=== PATIENT | male | born 1930 | race Caucasian/White ===

== ENCOUNTER 2017-08-27 21:23 | Observation (INO) | payer OTHER ==
[~2017-08-27] VITALS: Ht 177.8 cm; Wt 71.0 kg
[~2017-08-27 21:23] MED LIST: ANACIN PO; INSDGI SC; LEVE1TAB57 PO; LOVA10TA3 PO; METO25TA56 PO; MULT-190 PO; NTRGSL/4 UT; NVLGI SC; PRLSR20 PO; VITRON-C PO
[2017-08-27] MEDS ORDERED: SODIUM CHLORIDE 0.9% 250ML 250 ML IV STA (21:39)
[2017-08-27 22:19] LABS: BASO % 0.6 %; BASO ABS # 0.04 K/uL (0-0.2); EOS % 5.4 %; EOS ABS # 0.35 K/uL (0-0.5); HEMATOCRIT 40.1 % (42-52); HEMOGLOBIN 14.1 g/dL (14.0-18.0); IG# 0.02 K/uL (0.00-0.02); LYMPH % 25.1 %; LYMPH ABS # 1.63 K/uL (1.2-3.4); MEAN CORPUSCULAR HEMOGLOBIN 35.2 pg (25-34); MEAN CORPUSCULAR HGB CONC 35.2 g/dl (32-36); MEAN PLATELET VOLUME 10.6 fL (7.4-10.4); MONO % 14.5 %; MONO ABS # 0.94 K/uL (0.11-0.59); NEUT % 54.1 %; NEUT ABS # 3.52 K/uL (1.4-6.5); PLATELET COUNT 161 K/uL (130-400); RED CELL DISTRIBUTION WIDTH CV 13.5 % (11.5-14.5); RED CELL DISTRIBUTION WIDTH SD 49.3 fL (36.4-46.3)
[2017-08-27 22:42] LABS: ALBUMIN 3.1 gm/dl (3.4-5.0); CALCIUM 8.3 mg/dl (8.5-10.1); CREATININE 1.97 mg/dl (0.60-1.40); POTASSIUM 4.3 mmol/L (3.5-5.1)
[2017-08-27 23:05] LABS: TOTAL PROTEIN 6.9 gm/dl (6.4-8.2)
[2017-08-28] VITALS (7 sets, daily range): BP systolic 136–158; BP diastolic 56–80; PULSE 61–89; TEMP 36.4–36.8; O2SAT 95–98; Ht 177.8 cm; Wt 71.0 kg
[2017-08-28] MEDS ORDERED: FERRTAB18 PO (00:29)
[2017-08-28] MEDS ORDERED: ASPI-435 PO (00:29)
[2017-08-28] MEDS ORDERED: CALC0.2510 PO (00:32)
[2017-08-28] MEDS ORDERED: DIVA250T PO (00:32)
[2017-08-28] MEDS ORDERED: PREN1MIS PO (00:34)
[2017-08-28] MEDS ORDERED: NVLG SQ ×2 (00:36)
[2017-08-28] MEDS ORDERED: L-ME1CAP3 PO (00:37)
[2017-08-28] MEDS ORDERED: INSDGI SC (00:38)
[2017-08-28] MEDS ORDERED: LEVE500T13 PO (00:38)
[2017-08-28] MEDS ORDERED: METOPROLOL TARTRATE 50 MG TAB PO STA (00:38)
[2017-08-28] MEDS ORDERED: FURO-85 PO (00:38)
--- NOTE | 2017-08-28 00:40 | EMERGENCY ROOM VISIT NOTE ---
ED Visit Note First contact with patient: 22:28 The patient was seen and examined with Kun. I agree with the history, physical and findings. Please see the note for disposition and details.
--- NOTE | 2017-08-28 00:46 | EMERGENCY ROOM VISIT NOTE ---
History First contact with patient: 21:28 Chief Complaint: DIARRHEA Stated Complaint: DIARRHEA History of Present Illness The patient is a 87 year old male who presents to the Emergency Room with complaints of 4 episodes of diarrhea today. No blood or black in it. Patient is diabetic. Glucose earlier today is 81. Patient feels slightly shaky. Patient denies chest pain, dyspnea, abdominal pain, nausea, vomiting, back pain , flank pain, urinary symptoms, fever, chills, recent antibiotics. No well water. He states his was concerned and made him come in. Colonoscopy in was normal. No diverticulitis in the past. Patient is tolerating p.o. fluids and food. Review of Systems An 10 system review of systems was completed with positives and pertinent negatives listed in the HPI. Past Medical/Surgical History Coronary artery disease, leg stents, diabetes, hypertension, depression, hyperlipidemia, GERD, epidural bleed on seizure med Social History Smoking Status: Never Smoker Smokeless Tobacco Use: No Drug Use: none Marital Status: Housing Status: lives with family Occupation Status: retired Current/Historical Medications Scheduled Aspirin (Aspirin 81), 81 MG PO DAILY Calcitriol (Rocaltrol Cap), 0.25 MCG PO 3XWK Divalproex Sodium (Depakote Er), 250 MG PO TID Insulin Aspart (Novolog), 5 UNITS SQ morning & noon Insulin Aspart (Novolog), 10 UNITS SQ @ supper Iron-Vitamin C (Vitron-C), 1 TAB PO BID L-Methylfolate W/ Algae-Vitami (Metanx), 1 CAP PO DAILY Lovastatin (Mevacor), 10 MG PO daily @ noon Metoprolol Tartrate (Lopressor) (Lopressor), 25 MG PO BID Ocuvite Preservision (Ocuvite Preservision), 1 TAB PO BID Omeprazole (Prilosec), 20 MG PO HS Vit W/ Ferrous Fumara (Pnv Plus Multivi 27-1 & 312 mg), 1 TAB PO daily @ noon Scheduled PRN Nitroglycerin (Nitrostat), 0.4 MG UT UD PRN for Chest Pain Physical Exam Vital Signs Date Time Temp Pulse Resp B/P (MAP) Pulse Ox O2 Delivery O2 Flow Rate FiO2 08/28/17 00:21 83 08/27/17 23:17 79 18 157/86 97 08/27/17 22:25 86 136/64 95 Room Air 08/27/17 22:22 79 142/88 80 146/76 82 136/64 08/27/17 21:59 80 08/27/17 21:52 99 Room Air 08/27/17 21:26 36.5 83 20 171/84 98 Room Air Physical Exam VITALS: Vitals are noted on the nurse's note and reviewed by myself. Vital signs hypertensive. GENERAL: Pleasant male mildly shaky, in no acute distress, nondiaphoretic, well- developed well-nourished. SKIN: The skin was without rashes, erythema, edema, or bruising. There is no tenting of the skin. Capillary reflex less than 2 seconds. HEAD: Normocephalic atraumatic. EARS: External auditory canals clear, tympanic membranes pearly higginbotham without erythema or effusion bilaterally. EYES: Pupils equal round and reactive to light and accommodation. Conjunctivae without injection, sclerae without icterus. Extraocular movements intact. NOSE: Patent, turbinates without inflammation or discharge. No sinus tenderness. MOUTH: Mucous membranes mildly dry pharynx without erythema or exudate. Uvula midline. Airway patent. Tongue does not deviate. NECK: Supple without nuchal rigidity. No lymphadenopathy. No thyromegaly. Cervical spine is nontender. No JVD. HEART: Regular rate and rhythm LUNGS: Clear to auscultation bilaterally without wheezes, rales or rhonchi. No retractions or accessory muscle use. ABDOMEN: Positive bowel sounds x 4. Normal tympanic percussion. Soft, nontender, without masses or organomegaly. Fischer sign negative. No guarding or rebound tenderness. No CVA tenderness MUSCULOSKELETAL: No muscle atrophy, erythema, or edema noted. NEURO: Patient was alert and oriented to person place and time. Normal sensation to light and sharp touch. No focal neurological deficits. Medical Decision & Procedures Laboratory Results 08/27/17 22:11 Red Blood Count 4.01, Mean Corpuscular Volume 100.0, Mean Corpuscular Hemoglobin 35.2, Mean Corpuscular Hemoglobin Concent 35.2, Mean Platelet Volume 10.6, Neutrophils (%) (Auto) 54.1, Lymphocytes (%) (Auto) 25.1, Monocytes (%) ( Auto) 14.5, Eosinophils (%) (Auto) 5.4, Basophils (%) (Auto) 0.6, Neutrophils # (Auto) 3.52, Lymphocytes # (Auto) 1.63, Monocytes # (Auto) 0.94, Eosinophils # ( Auto) 0.35, Basophils # (Auto) 0.04 08/27/17 22:11 Test 08/27/17 21:35 08/27/17 22:11 08/27/17 22:16 08/28/17 00:01 Bedside Glucose 170 mg/dl (70-99) White Blood Count 6.50 K/uL (4.8-10.8) Red Blood Count 4.01 M/uL (4.7-6.1) Hemoglobin 14.1 g/dL (14.0-18.0) Hematocrit 40.1 % (42-52) Mean Corpuscular Volume 100.0 fL (80-100) Mean Corpuscular Hemoglobin 35.2 pg (25-34) Mean Corpuscular Hemoglobin Concent 35.2 g/dl (32-36) Platelet Count 161 K/uL (130-400) Mean Platelet Volume 10.6 fL (7.4-10.4) Neutrophils (%) (Auto) 54.1 % Lymphocytes (%) (Auto) 25.1 % Monocytes (%) (Auto) 14.5 % Eosinophils (%) (Auto) 5.4 % Basophils (%) (Auto) 0.6 % Neutrophils # (Auto) 3.52 K/uL (1.4-6.5) Lymphocytes # (Auto) 1.63 K/uL (1.2-3.4) Monocytes # (Auto) 0.94 K/uL (0.11-0.59) Eosinophils # (Auto) 0.35 K/uL (0-0.5) Basophils # (Auto) 0.04 K/uL (0-0.2) RDW Standard Deviation 49.3 fL (36.4-46.3) RDW Coefficient of Variation 13.5 % (11.5-14.5) Immature Granulocyte % (Auto) 0.3 % Immature Granulocyte # (Auto) 0.02 K/uL (0.00-0.02) Anion Gap 5.0 mmol/L (3-11) Est Creatinine Clear Calc Drug Dose 26.5 ml/min Estimated GFR () 34.9 Estimated GFR (Non- 30.1 BUN/Creatinine Ratio 21.3 (10-20) Calcium Level 8.3 mg/dl (8.5-10.1) Magnesium Level 2.1 mg/dl (1.8-2.4) Total Bilirubin 0.4 mg/dl (0.2-1) Direct Bilirubin 0.2 mg/dl (0-0.2) Aspartate Amino Transf (AST/SGOT) 21 U/L (15-37) Alanine Aminotransferase (ALT/SGPT) 20 U/L (12-78) Alkaline Phosphatase 74 U/L (45-117) Total Protein 6.9 gm/dl (6.4-8.2) Albumin 3.1 gm/dl (3.4-5.0) Thyroid Stimulating Hormone (TSH) 7.040 uIu/ml (0.300-4.500) Bedside Troponin I 0.030 ng/ml (0-0.045) Total Triiodothyronine ng/ml (0.60-1.81) Test 08/28/17 00:33 Medications Administered Medications (Trade) Dose Ordered Sig/Melisa Route Start Time Stop Time Status Last Admin Dose Admin Sodium Chloride 250 ml @ 999 mls/hr Q16M STAT IV 08/27/17 21:39 08/27/17 21:54 DC 08/27/17 21:39 999 MLS/HR ED Course Prior records/ancillary studies reviewed and summarized above. Nursing notes reviewed. Additional history obtained from family The patient's history was concerning for diarrhea and feeling shaky. Differential diagnosis: Etiologies such as metabolic, infection, hypo/hyperglycemia, electrolyte abnormalities, cardiac sources, intracerebral event, toxicologic, neurologic, as well as others were entertained. Physical examination: As above. ER treatment provided: IV Lock IV fluids On reassessment the patient felt better. Diagnostics interpretation by me: ECG: Left bundle branch block, occasional PVC, no acute ST-T wave changes, rate of 78. EKG compared to prior EKG from April 2017 with no acute changes noted. Impression left bundle branch block with occasional PVC interpreted by myself. Repeat EKG was unchanged as patient had an elevated troponin. The labs revealed elevated trop Fingerstick 170, mild hyperglycemia without DKA Creatinine 1.9 stable per chart review Consultation: A consultation was placed with the hospitalist, Dr Murray. The case was discussed and diagnostics were reviewed. The patient was evaluated in the ER for further treatment. Exam and history seem consistent with diarrhea with weakness and elevated troponin with unchanged EKG. patient will be evaluated by medicine for troponin abnormality. This could be a lab error. The POC was negative. Patient did not have an acute abdomen on exam. He is well-appearing. He is tolerating fluids. He was neurovascularly and neurologically intact. By the evaluation outlined above emergent etiologies such as infection, electrolyte abnormalities , intracerebral event, toxologic, neurologic, metabolic, as well as others were deemed relatively unlikely. The pt informed about the findings as listed above. All questions were answered and pleased with the treatment. The chart was completed utilizing [employer] Speech voice recognition software. Grammatical errors, random word insertions, pronoun errors, and incomplete sentences are an occassional consequence of this system due to software limitations, ambient noise, and hardware issues. Any formal questions or concerns about the content, text, or information contained within the body of this dictation should be directly addressed to the physician bacteriology research assistant for clarification. Case reviewed with my attending Medical Decision As above Medication Reconcilliation Current Medication List: was personally reviewed by me Blood Pressure Screening Patient's blood pressure: Elevated blood pressure Blood pressure disposition: Elevated BP felt to be situational Impression Primary Impression: Elevated troponin Additional Impressions: Acute diarrhea Hyperglycemia due to type 2 diabetes mellitus Departure Information Dispostion Being Evaluated By Hospitalist Condition FAIR Referrals No Doctor, Assigned (PCP) Patient Instructions My [facility] Problem Qualifiers
[2017-08-28 01:05] LABS: PTT PATIENT 29.2 SECONDS (21.0-31.0)
[2017-08-28] MEDS ORDERED: INSULIN ASPART 100 UNITS/ML 3 ML PEN SC ONE (02:59)
[2017-08-28] MEDS ORDERED: PROCHLORPERAZINE INJ 5 MG in SYRINGE 4 ML IV PRN (03:00)
[2017-08-28] MEDS ORDERED: OXYCODONE/ACETAMINOPHEN 5-325 TAB PO PRN (03:00)
[2017-08-28] MEDS ORDERED: NITROGLYCERIN 0.4 MG SL PER TAB CHARGE SL PRN (03:00)
[2017-08-28] MEDS ORDERED: GLUCOSE 40% GEL 15 GM TUBE PO PRN (03:00)
[2017-08-28] MEDS ORDERED: GLUCOSE 10 TABS/TUBE PO PRN (03:00)
[2017-08-28] MEDS ORDERED: ACETAMINOPHEN 325 MG TAB PO PRN (03:00)
[2017-08-28] MEDS ORDERED: GLUCAGON FOR INJ 1 MG VIAL SQ PRN (03:00)
[2017-08-28] MEDS ORDERED: DEXTROSE 50% 50 ML SYR IV PRN (03:00)
[2017-08-28] MEDS ORDERED: INSULIN GLARGINE SOLOSTAR 100 UNITS/ML 3 ML PEN SC ONE (03:52)
[2017-08-28] MEDS ORDERED: SODIUM CHLORIDE 0.9% 1000ML 1,000 ML IV ONE (04:00)
[2017-08-28] MEDS ORDERED: IV FLUIDS COMPLETED PRN (04:45)
[2017-08-28] MEDS: DIVALPROEX 250 MG EXTENDED REL TAB PO SCH ×2 (07:46→14:27)
[2017-08-28] MEDS: INSULIN ASPART 100 UNITS/ML 3 ML PEN SC SCH ×3 (07:48→17:06)
[2017-08-28 07:58] LABS: BASO % 0.5 %; BASO ABS # 0.03 K/uL (0-0.2); EOS % 4.7 %; EOS ABS # 0.27 K/uL (0-0.5); HEMATOCRIT 39.1 % (42-52); HEMOGLOBIN 13.7 g/dL (14.0-18.0); IG# 0.01 K/uL (0.00-0.02); LYMPH % 23.2 %; LYMPH ABS # 1.33 K/uL (1.2-3.4); MEAN CELL VOLUME 99.2 fL (80-100); MEAN CORPUSCULAR HEMOGLOBIN 34.8 pg (25-34); MEAN PLATELET VOLUME 10.2 fL (7.4-10.4); MONO % 13.6 %; MONO ABS # 0.78 K/uL (0.11-0.59); NEUT % 57.8 %; NEUT ABS # 3.31 K/uL (1.4-6.5); PLATELET COUNT 164 K/uL (130-400); RED CELL DISTRIBUTION WIDTH CV 13.7 % (11.5-14.5); RED CELL DISTRIBUTION WIDTH SD 49.3 fL (36.4-46.3); WHITE BLOOD COUNT 5.73 K/uL (4.8-10.8)
[2017-08-28 08:17] LABS: CALCIUM 8.4 mg/dl (8.5-10.1); CREATININE 1.66 mg/dl (0.60-1.40); POTASSIUM 4.6 mmol/L (3.5-5.1)
[2017-08-28] MEDS ORDERED: LEVETIRACETAM 500 MG TAB PO SCH (09:00)
[2017-08-28] MEDS ORDERED: CEROVITE ADV FORMULA TAB PO SCH (09:00)
[2017-08-28] MEDS ORDERED: ASPIRIN 81 MG ECTAB PO SCH (09:00)
[2017-08-28] MEDS ORDERED: METOPROLOL TARTRATE 25 MG TAB PO SCH (09:00)
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
--- NOTE | 2017-08-28 11:03 | DIAGNOSTIC IMAGING REPORT ---
CHEST ONE VIEW PORTABLE CLINICAL HISTORY: weakness ELEVATED TROPONIN COMPARISON STUDY: 11/20/2009 FINDINGS: The cardiac and mediastinal contours are normal. There is no evidence of focal pulmonary consolidation. There is no evidence of failure. No pleural effusions are visualized.[ There is a 1 cm density at the level the right cardiophrenic angle. This is likely extraneous to the patient. IMPRESSION: No active disease in the chest. Electronically signed by: Orestes Rios M.D. 08/28/2017 11:02 AM Dictated Date/Time: 08/28/2017 11:01 AM
[2017-08-28] MEDS ORDERED: PRENATAL VITAMIN TAB PO SCH (12:00)
[2017-08-28] MEDS ORDERED: LOVASTATIN 20 MG TAB PO SCH (12:00)
--- NOTE | 2017-08-28 16:26 | ECHOCARDIOGRAM REPORT ---
*NOTICE TO RECEIVING DEMOCRAT AGENCY This information is strictly Confidential and protected under [place] law. [place] law prohibits you from making any further disclosure of this information unless further disclosure is expressly permitted by the written consent of the person to whom it pertains or is authorized by law. A general authorization for the release of medical or other information is not sufficient for this purpose. Hospital accepts no responsibility if the information is made available to any other person, INCLUDING THE PATIENT. Interpretation Summary * Name: JOSHUA BENÍTEZ Study Date: 08/28/2017 08:47 AM BP: 148/75 mmHg * Patient Location: C.2T\S\S243\S\1 HR: 81 * : 1930 (M/d/yyyy) Gender: Male Height: 70 in * Age: 87 yrs Ethnicity: CA Weight: 147 lb * Ordering Physician: Tucker Murray * Referring Physician: Self, Referred * Performed By: Jayne Hu RCS * * Reason For Study: ELEVATED TROPONIN * BSA: 1.8 m2 * -- Conclusions -- * There is moderate concentric left ventricular hypertrophy. * There is inferior wall akinesis. * Left ventricular systolic function is moderately reduced. * Ejection Fraction = 35-40%. * The right ventricular systolic function is normal. * The left atrial size is normal. * Right atrial size is normal. * Moderate aortic regurgitation. * There is moderate mitral regurgitation. Procedure Details * A complete two-dimensional transthoracic echocardiogram was performed (2D, M-mode, Doppler and color flow Doppler). Left Ventricle * The left ventricle is normal in size. * There is moderate concentric left ventricular hypertrophy. * Left ventricular systolic function is moderately reduced. * Ejection Fraction = 35-40%. * There is inferior wall akinesis. Right Ventricle * The right ventricle is normal size. * The right ventricular systolic function is normal. Atria * The left atrial size is normal. * Right atrial size is normal. * No ASD detected; PFO is not assessed. Mitral Valve * The mitral valve anatomy is normal. * There is moderate mitral regurgitation. Tricuspid Valve * The tricuspid valve anatomy is normal. * Significant tricuspid regurgitation is absent. Aortic Valve * The aortic valve is tricuspid. The leaflet thickness if normal. There is no aortic stenosis, and no significant insufficiency. * No hemodynamically significant valvular aortic stenosis. * Moderate aortic regurgitation. Pulmonic Valve * The pulmonic valve is not well visualized. Great Vessels * The aortic root and proximal ascending aorta are normal sized. Pericardium/Pleural * There is no pericardial effusion. MMode 2D Measurements and Calculations IVSd 1.7 cm IVSs 2.2 cm LVIDd 3.8 cm LVIDs 3.1 cm LVPWd 1.4 cm LVPWs 1.5 cm IVS/LVPW 1.2 FS 17.9 % EDV(Teich) 60.5 ml ESV(Teich) 37.7 ml EF(Teich) 37.8 % EDV(cubed) 53.3 ml ESV(cubed) 29.5 ml EF(cubed) 44.6 % % IVS thick 30.6 % % LVPW thick 6.3 % LV mass(C)d 230.8 grams LV mass(C)dI 126.0 grams/m\S\2 LV mass(C)s 243.7 grams LV mass(C)sI 133.1 grams/m\S\2 SV(Teich) 22.9 ml SI(Teich) 12.5 ml/m\S\2 SV(cubed) 23.8 ml SI(cubed) 13.0 ml/m\S\2 Ao root diam 4.1 cm Ao root area 13.0 cm\S\2 ACS 1.8 cm LA dimension 2.4 cm LA/Ao 0.60 LVOT diam 2.3 cm LVOT area 4.0 cm\S\2 LVAd ap4 27.2 cm\S\2 LVLd ap4 7.4 cm EDV(MOD-sp4) 85.1 ml EDV(sp4-el) 85.1 ml LVAs ap4 18.9 cm\S\2 LVLs ap4 6.0 cm ESV(MOD-sp4) 53.2 ml ESV(sp4-el) 50.8 ml EF(MOD-sp4) 37.5 % EF(sp4-el) 40.3 % LVAd ap2 27.2 cm\S\2 LVLd ap2 7.4 cm EDV(MOD-sp2) 89.1 ml EDV(sp2-el) 85.4 ml LVAs ap2 19.9 cm\S\2 LVLs ap2 6.1 cm ESV(MOD-sp2) 55.1 ml ESV(sp2-el) 55.7 ml EF(MOD-sp2) 38.2 % EF(sp2-el) 34.8 % LVLd %diff -0.16 % EDV(MOD-bp) 87.1 ml LVLs %diff 1.1 % ESV(MOD-bp) 54.3 ml EF(MOD-bp) 37.7 % SV(MOD-sp4) 31.9 ml SI(MOD-sp4) 17.4 ml/m\S\2 SV(MOD-sp2) 34.0 ml SI(MOD-sp2) 18.6 ml/m\S\2 SV(MOD-bp) 32.8 ml SI(MOD-bp) 17.9 ml/m\S\2 SV(sp4-el) 34.3 ml SI(sp4-el) 18.7 ml/m\S\2 SV(sp2-el) 29.7 ml SI(sp2-el) 16.2 ml/m\S\2 Doppler Measurements and Calculations MV E max aminata 144.0 cm/sec MV P1/2t max aminata 174.3 cm/sec MV P1/2t 45.2 msec MVA(P1/2t) 4.9 cm\S\2 MV dec slope 1129.5 cm/sec\S\2 MV dec time 0.14 sec Ao V2 max 78.3 cm/sec Ao max PG 2.5 mmHg Ao max PG (full) 0.99 mmHg OTONIEL(V,A) 3.1 cm\S\2 OTONIEL(V,D) 3.1 cm\S\2 LV V1 max PG 1.5 mmHg LV V1 max 60.4 cm/sec MR max aminata 522.2 cm/sec MR max PG 109.1 mmHg PA V2 max 77.6 cm/sec PA max PG 2.4 mmHg
--- NOTE | 2017-08-28 17:28 | Progress Note ---
Internal Med Progress Note Date of Service: Aug 28, 2017. Provider Documentation: SUBJECTIVE: Patient reports that diarrhea has resolved OBJECTIVE: GENERAL: no acute distress HEENT: [place] palpebral conjunctivae. No ptosis. Dry mucosa. NECK: Short, supple. CHEST: CTABL HEART: Systolic murmur. Regular rate and rhythm. ABDOMEN: bowel sounds present, nontender. EXTREMITIES: No edema. No gross deformity. No tenderness. Neurology: no focal deficits ASSESSMENT & PLAN: Patient was evaluated in the hospital for diarrhea and found to the have elevated tropeolins without symptoms of chest pain and echocardiogram on this admission reflects echocardiogram study in 12/2011 when Ejection Fraction 35-40% with extensive area of inferior and lateral akinesis Echocardiogram on this admission 08/28/17 There is moderate concentric left ventricular hypertrophy. There is inferior wall akinesis. Left ventricular systolic function is moderately reduced. Ejection Fraction = 35-40%. The right ventricular systolic function is normal. The left atrial size is normal. Right atrial size is normal. Moderate aortic regurgitation. There is moderate mitral regurgitation BBB like long-standing (IVCD, incomplete LBBB on review of previous EKGs) Elevated Troponins 0.059 to max of 0.069; elevated tropeolins likely from Acute kidney injury on Chronic kidney disease from dehydration due to diarrhea and to known cardiac disease Diabetes Mellitus Type 2 on insulin History of traumatic intracranial hemorrhage status post surgery 2009 Disposition: discharge to home Upcoming follow up appointments 08/31/2017 2:00 PM Jacob Pink Jr., DO Cardiology, [facility] 09/03/2017 9:00 AM Lonnie Barone II, MD Otolaryngology [facility] 09/04/2017 3:30 PM Aly Muñiz MD Family Practice [facility] 09/13/2017 10:40 AM Joe Terrazas MD Neurology [facility] Vital Signs: Date Time Temp Pulse Resp B/P (MAP) Pulse Ox O2 Delivery O2 Flow Rate FiO2 08/28/17 15:25 36.8 89 20 158/72 (100) 95 Room Air 08/28/17 12:00 Room Air 08/28/17 11:47 36.7 72 18 157/56 (89) 97 Room Air 08/28/17 08:00 Room Air 08/28/17 07:45 36.8 61 18 136/67 (90) 97 Room Air 08/28/17 04:00 98 Room Air 08/28/17 03:55 36.5 69 18 148/75 (99) 95 Room Air 08/28/17 03:00 36.4 74 20 156/80 98 Room Air 08/28/17 02:53 70 18 151/79 99 Room Air 08/28/17 00:56 72 18 160/87 99 08/28/17 00:21 83 08/27/17 23:17 79 18 157/86 97 08/27/17 22:25 86 136/64 95 Room Air 08/27/17 22:22 79 142/88 80 146/76 82 136/64 08/27/17 21:59 80 08/27/17 21:52 99 Room Air 08/27/17 21:26 36.5 83 20 171/84 98 Room Air Lab Results: Results Past 24 Hours Test 08/27/17 21:35 08/27/17 22:11 08/27/17 22:16 08/28/17 00:01 Range/Units Bedside Glucose 170 70-99 mg/dl White Blood Count 6.50 4.8-10.8 K/uL Red Blood Count 4.01 4.7-6.1 M/uL Hemoglobin 14.1 14.0-18.0 g/dL Hematocrit 40.1 42-52 % Mean Corpuscular Volume 100.0 80-100 fL Mean Corpuscular Hemoglobin 35.2 25-34 pg Mean Corpuscular Hemoglobin Concent 35.2 32-36 g/dl Platelet Count 161 130-400 K/uL Mean Platelet Volume 10.6 7.4-10.4 fL Neutrophils (%) (Auto) 54.1 % Lymphocytes (%) (Auto) 25.1 % Monocytes (%) (Auto) 14.5 % Eosinophils (%) (Auto) 5.4 % Basophils (%) (Auto) 0.6 % Neutrophils # (Auto) 3.52 1.4-6.5 K/uL Lymphocytes # (Auto) 1.63 1.2-3.4 K/uL Monocytes # (Auto) 0.94 0.11-0.59 K/uL Eosinophils # (Auto) 0.35 0-0.5 K/uL Basophils # (Auto) 0.04 0-0.2 K/uL RDW Standard Deviation 49.3 36.4-46.3 fL RDW Coefficient of Variation 13.5 11.5-14.5 % Immature Granulocyte % (Auto) 0.3 % Immature Granulocyte # (Auto) 0.02 0.00-0.02 K/uL Sodium Level 134 136-145 mmol/L Potassium Level 4.3 3.5-5.1 mmol/L Chloride Level 100 98-107 mmol/L Carbon Dioxide Level 29 21-32 mmol/L Anion Gap 5.0 3-11 mmol/L Blood Urea Nitrogen 42 7-18 mg/dl Creatinine 1.97 0.60-1.40 mg/dl Est Creatinine Clear Calc Drug Dose 26.5 ml/min Estimated GFR () 34.9 Estimated GFR (Non- 30.1 BUN/Creatinine Ratio 21.3 10-20 Random Glucose 214 70-99 mg/dl Calcium Level 8.3 8.5-10.1 mg/dl Magnesium Level 2.1 1.8-2.4 mg/dl Total Bilirubin 0.4 0.2-1 mg/dl Direct Bilirubin 0.2 0-0.2 mg/dl Aspartate Amino Transf (AST/SGOT) 21 15-37 U/L Alanine Aminotransferase (ALT/SGPT) 20 12-78 U/L Alkaline Phosphatase 74 45-117 U/L Troponin I 0.059 0.066 0-0.045 ng/ml Total Protein 6.9 6.4-8.2 gm/dl Albumin 3.1 3.4-5.0 gm/dl Thyroid Stimulating Hormone (TSH) 7.040 0.300-4.500 uIu/ml Bedside Troponin I 0.030 0-0.045 ng/ml Free Thyroxine 1.11 0.80-1.60 ng/dl Total Triiodothyronine 0.60-1.81 ng/ml Test 08/28/17 00:43 08/28/17 03:20 08/28/17 06:58 08/28/17 07:30 Range/Units Activated Partial Thromboplast Time 29.2 21.0-31.0 SECONDS Partial Thromboplastin Ratio 1.1 Valproic Acid (Depakene) Level 33 50-100 mcg/ml Bedside Glucose 223 255 70-99 mg/dl White Blood Count 5.73 4.8-10.8 K/uL Red Blood Count 3.94 4.7-6.1 M/uL Hemoglobin 13.7 14.0-18.0 g/dL Hematocrit 39.1 42-52 % Mean Corpuscular Volume 99.2 80-100 fL Mean Corpuscular Hemoglobin 34.8 25-34 pg Mean Corpuscular Hemoglobin Concent 35.0 32-36 g/dl Platelet Count 164 130-400 K/uL Mean Platelet Volume 10.2 7.4-10.4 fL Neutrophils (%) (Auto) 57.8 % Lymphocytes (%) (Auto) 23.2 % Monocytes (%) (Auto) 13.6 % Eosinophils (%) (Auto) 4.7 % Basophils (%) (Auto) 0.5 % Neutrophils # (Auto) 3.31 1.4-6.5 K/uL Lymphocytes # (Auto) 1.33 1.2-3.4 K/uL Monocytes # (Auto) 0.78 0.11-0.59 K/uL Eosinophils # (Auto) 0.27 0-0.5 K/uL Basophils # (Auto) 0.03 0-0.2 K/uL RDW Standard Deviation 49.3 36.4-46.3 fL RDW Coefficient of Variation 13.7 11.5-14.5 % Immature Granulocyte % (Auto) 0.2 % Immature Granulocyte # (Auto) 0.01 0.00-0.02 K/uL Sodium Level 136 136-145 mmol/L Potassium Level 4.6 3.5-5.1 mmol/L Chloride Level 103 98-107 mmol/L Carbon Dioxide Level 27 21-32 mmol/L Anion Gap 6.0 3-11 mmol/L Blood Urea Nitrogen 37 7-18 mg/dl Creatinine 1.66 0.60-1.40 mg/dl Est Creatinine Clear Calc Drug Dose 32.7 ml/min Estimated GFR () 42.9 Estimated GFR (Non- 37.0 BUN/Creatinine Ratio 22.2 10-20 Random Glucose 274 70-99 mg/dl Calcium Level 8.4 8.5-10.1 mg/dl Troponin I 0.069 0-0.045 ng/ml Test 08/28/17 11:10 08/28/17 13:38 08/28/17 16:34 Range/Units Bedside Glucose 233 290 70-99 mg/dl Troponin I 0.068 0-0.045 ng/ml
--- NOTE | 2017-08-28 17:35 | Discharge Instructions ---
Discharge Instructions Date of Service Aug 28, 2017. Admission Reason for Admission: Elevated Troponin Discharge Discharge Diagnosis / Problem: diarrhea, elevated troponins, ANT on CKD, dehydration Discharge Goals Goal(s): Improve function Activity Recommendations Activity Limitations: per Instructions/Follow-up section Shower/Bathe: no limitations . Instructions / Follow-Up Instructions / Follow-Up Patient was evaluated in the hospital for diarrhea and found to the have elevated tropeolins without symptoms of chest pain and echocardiogram on this admission reflects echocardiogram study in 12/2011 when Ejection Fraction 35-40% with extensive area of inferior and lateral akinesis Echocardiogram on this admission 08/28/17 There is moderate concentric left ventricular hypertrophy. There is inferior wall akinesis. Left ventricular systolic function is moderately reduced. Ejection Fraction = 35-40%. The right ventricular systolic function is normal. The left atrial size is normal. Right atrial size is normal. Moderate aortic regurgitation. There is moderate mitral regurgitation BBB like long-standing (IVCD, incomplete LBBB on review of previous EKGs) Elevated Troponins 0.059 to max of 0.069; elevated tropeolins likely from Acute kidney injury on Chronic kidney disease from dehydration due to diarrhea and to known cardiac disease Diabetes Mellitus Type 2 on insulin History of traumatic intracranial hemorrhage status post surgery 2009 Disposition: discharge to home Upcoming follow up appointments 08/31/2017 2:00 PM Jacob Pink Jr., Cardiology, [facility] 09/03/2017 9:00 AM Lonnie Barone II, MD Otolaryngology [facility] 09/04/2017 3:30 PM Aly Muñiz MD Family Practice [facility] 09/13/2017 10:40 AM Joe Terrazas MD Neurology [facility] Current Hospital Diet Patient's current hospital diet: Diabetes Type 2 Diet, Low Lactose Diet Discharge Diet Recommended Diet: Diabetes Type 2 Diet, Low Lactose Diet Pending Studies Studies pending at discharge: no Laboratory Results 08/28/17 07:30 Red Blood Count 3.94, Mean Corpuscular Volume 99.2, Mean Corpuscular Hemoglobin 34.8, Mean Corpuscular Hemoglobin Concent 35.0, Mean Platelet Volume 10.2, Neutrophils (%) (Auto) 57.8, Lymphocytes (%) (Auto) 23.2, Monocytes (%) (Auto) 13.6, Eosinophils (%) (Auto) 4.7, Basophils (%) (Auto) 0.5, Neutrophils # (Auto ) 3.31, Lymphocytes # (Auto) 1.33, Monocytes # (Auto) 0.78, Eosinophils # (Auto ) 0.27, Basophils # (Auto) 0.03 08/28/17 07:30 Test 08/27/17 22:11 08/27/17 22:16 08/28/17 00:01 08/28/17 00:43 Magnesium Level 2.1 mg/dl (1.8-2.4) Total Bilirubin 0.4 mg/dl (0.2-1) Direct Bilirubin 0.2 mg/dl (0-0.2) Aspartate Amino Transf (AST/SGOT) 21 U/L (15-37) Alanine Aminotransferase (ALT/SGPT) 20 U/L (12-78) Alkaline Phosphatase 74 U/L (45-117) Total Protein 6.9 gm/dl (6.4-8.2) Albumin 3.1 gm/dl (3.4-5.0) Thyroid Stimulating Hormone (TSH) 7.040 uIu/ml (0.300-4.500) Bedside Troponin I 0.030 ng/ml (0-0.045) Free Thyroxine 1.11 ng/dl (0.80-1.60) Total Triiodothyronine ng/ml (0.60-1.81) Activated Partial Thromboplast Time 29.2 SECONDS (21.0-31.0) Partial Thromboplastin Ratio 1.1 Valproic Acid (Depakene) Level 33 mcg/ml (50-100) Test 08/28/17 07:30 08/28/17 13:38 08/28/17 16:34 White Blood Count 5.73 K/uL (4.8-10.8) Red Blood Count 3.94 M/uL (4.7-6.1) Hemoglobin 13.7 g/dL (14.0-18.0) Hematocrit 39.1 % (42-52) Mean Corpuscular Volume 99.2 fL (80-100) Mean Corpuscular Hemoglobin 34.8 pg (25-34) Mean Corpuscular Hemoglobin Concent 35.0 g/dl (32-36) Platelet Count 164 K/uL (130-400) Mean Platelet Volume 10.2 fL (7.4-10.4) Neutrophils (%) (Auto) 57.8 % Lymphocytes (%) (Auto) 23.2 % Monocytes (%) (Auto) 13.6 % Eosinophils (%) (Auto) 4.7 % Basophils (%) (Auto) 0.5 % Neutrophils # (Auto) 3.31 K/uL (1.4-6.5) Lymphocytes # (Auto) 1.33 K/uL (1.2-3.4) Monocytes # (Auto) 0.78 K/uL (0.11-0.59) Eosinophils # (Auto) 0.27 K/uL (0-0.5) Basophils # (Auto) 0.03 K/uL (0-0.2) RDW Standard Deviation 49.3 fL (36.4-46.3) RDW Coefficient of Variation 13.7 % (11.5-14.5) Immature Granulocyte % (Auto) 0.2 % Immature Granulocyte # (Auto) 0.01 K/uL (0.00-0.02) Anion Gap 6.0 mmol/L (3-11) Est Creatinine Clear Calc Drug Dose 32.7 ml/min Estimated GFR () 42.9 Estimated GFR (Non- 37.0 BUN/Creatinine Ratio 22.2 (10-20) Calcium Level 8.4 mg/dl (8.5-10.1) Troponin I 0.068 ng/ml (0-0.045) Bedside Glucose 290 mg/dl (70-99) Medical Emergencies . Who to Call and When: Medical Emergencies: If at any time you feel your situation is an emergency, please call 911 immediately. . Non-Emergent Contact Non-Emergency issues call your: Primary Care Provider, Engineer Assistant Call Non-Emergent contact if: you have any medication questions . . "Provider Documentation" section prepared by Robel Serrano. .
--- NOTE | 2017-08-28 17:55 | Discharge Summary ---
Discharge Summary Date of Service Aug 28, 2017. Discharge Summary Admission Date: Aug 28, 2017 at 02:20 Discharge Date: Aug 28, 2017 Discharge Disposition: Home Principal Diagnosis: diarrhea, elevated troponins, ANT on CKD, dehydration Secondary Diagnoses/Problems: There is moderate concentric left ventricular hypertrophy. There is inferior wall akinesis. Left ventricular systolic function is moderately reduced. Ejection Fraction = 35-40%. The right ventricular systolic function is normal. The left atrial size is normal. Right atrial size is normal. Moderate aortic regurgitation. There is moderate mitral regurgitation Medication Reconciliation Continued Medications: Aspirin (Aspirin 81) 81 Mg Tab 81 MG PO DAILY Calcitriol (Rocaltrol Cap) 0.25 Mcg Cap 0.25 MCG PO 3XWK take 1 capsule on mon/sun/sun Divalproex Sodium (Depakote Er) 250 Mg Tab 250 MG PO TID Furosemide (Lasix) 20 Mg Tab 20 MG PO Q2D, TAB Insulin Aspart (Novolog) 100 Units/Ml Inj 5 UNITS SQ morning & noon per sliding scale Insulin Aspart (Novolog) 100 Units/Ml Inj 10 UNITS SQ @ supper per sliding scale Insulin Glargine (Lantus) 100 Unit/Ml Inj 16 UNITS SC QPM, VIAL Iron-Vitamin C (Vitron-C) 1 Tab Tab 1 TAB PO BID take at noon and 5pm L-Methylfolate W/ Algae-Vitami (Metanx) 1 Cap Cap 1 CAP PO DAILY Levetiracetam (Keppra) 500 Mg Tab 500 MG PO BID, TAB Lovastatin (Mevacor) 10 Mg Tab 10 MG PO daily @ noon, 0 Refills Metoprolol Tartrate (Lopressor) (Lopressor) 25 Mg Tab 25 MG PO BID, 0 Refills Nitroglycerin (Nitrostat) 0.4 Mg Tab 0.4 MG UT UD PRN for Chest Pain, 0 Refills Ocuvite Preservision (Ocuvite Preservision) 1 Tab Tab 1 TAB PO BID, 0 Refills Omeprazole (Prilosec) 20 Mg Capcr 20 MG PO HS, 0 Refills Vit W/ Ferrous Fumara (Pnv Plus Multivi 27-1 & 312 mg) 1 Mis Mis 1 TAB PO daily @ noon Admission Information HPI (per Admitting provider): HISTORY OF PRESENT ILLNESS: History obtained from patient, son, and records. 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 The patient subsequently transferred to [place]. Yesterday, patient noted to have loose stools, nonbloody. Generalized weakness. BSG 80s at home as per px. No chest pain, no shortness of breath. No fever, no chills. No abdominal pain, no nausea. No known sick contacts. No recent travel. No recent antibiotics. Recent dinner at the [employer] over the weekend. Brought to the Emergency Room for weakness. MEDICAL HISTORY: As above. A 2D echo from December 2011 showed EF of 35%-40%, extensive area of inferolateral akinesis, moderate MR. SURGERIES: He has had cataract surgery, tonsillectomy, oral cavity surgery, eye surgery, craniotomy, vascular procedure HOME MEDICATIONS: Include Nitrostat, Prilosec, Ocuvite, NovoLog, Lantus, Keppra, Mevacor, Toprol, aspirin, Depakote, Lasix . ALLERGIES: No known drug allergies. FAMILY HISTORY: There is a family history of diabetes. PERSONAL AND SOCIAL HISTORY: Past tobacco abuse, retired electrical enginee, store sales managerstaffing program manager OF SYSTEMS: As per HPI. All 10 systems reviewed. All other ROS negative. Physical Exam (per Admitting): PHYSICAL EXAMINATION: VITAL SIGNS: Blood pressure was noted to be 142/88, pulse rate 80, RR 18, temperature 37 O2 sats 99 on room air. Orthostatic vitals negative GENERAL: Noted to be slightly anxious, no respiratory distress, slightly hard of hearing. Looks younger for stated age. SKIN: Normal color, warm. HEENT: [place] palpebral conjunctivae. No ptosis. Dry mucosa. NECK: Short, supple. CHEST: Decreased effort, no tenderness. HEART: Systolic murmur. Regular rate and rhythm. ABDOMEN: Some distention, nontender. EXTREMITIES: No edema. No gross deformity. No tenderness. NEUROLOGIC: Coherent, no ptosis, equal MMTs, gait and stance not assessed Hospital Course Patient was evaluated in the hospital for diarrhea and found to the have elevated tropeolins without symptoms of chest pain and echocardiogram on this admission reflects echocardiogram study in 12/2011 when Ejection Fraction 35-40% with extensive area of inferior and lateral akinesis Echocardiogram on this admission 08/28/17 There is moderate concentric left ventricular hypertrophy. There is inferior wall akinesis. Left ventricular systolic function is moderately reduced. Ejection Fraction = 35-40%. The right ventricular systolic function is normal. The left atrial size is normal. Right atrial size is normal. Moderate aortic regurgitation. There is moderate mitral regurgitation BBB like long-standing (IVCD, incomplete LBBB on review of previous EKGs) Elevated Troponins 0.059 to max of 0.069; elevated tropeolins likely from Acute kidney injury on Chronic kidney disease from dehydration due to diarrhea and to known cardiac disease Diabetes Mellitus Type 2 on insulin History of traumatic intracranial hemorrhage status post surgery 2009 Disposition: discharge to home Upcoming follow up appointments 08/31/2017 2:00 PM Jacob Pink Jr., DO Cardiology, [facility] 09/03/2017 9:00 AM Lonnie Barone II, MD Otolaryngology [facility] 09/04/2017 3:30 PM Aly Muñiz MD Family Practice [facility] 09/13/2017 10:40 AM Joe Terrazas MD Neurology [facility] Total time spent on discharge = 60 minutes This includes examination of the patient, discharge planning, medication reconciliation, and communication with other providers. Discharge Instructions see above
[2017-08-28] MEDS ORDERED: PANTOprazole SOD 40 MG TAB PO SCH (21:00)
[2017-08-28] MEDS ORDERED: INSULIN GLARGINE SOLOSTAR 100 UNITS/ML 3 ML PEN SC SCH (21:00)
== END 2017-08-28 19:08 | disposition home or self-care (01) ==
LOC: C.EDB 21:24 → C.2T 08-28 02:20 → ENRESERV 08-28 02:32
PROVIDERS: ADMIT Hospitalist; ATTEND Hospitalist
DX: A08.4 Viral intestinal infection, unspecified (principal); R79.89 Other specified abnormal findings of blood chemistry; R19.7 Diarrhea, unspecified; E11.65 Type 2 diabetes mellitus with hyperglycemia; I50.22 Chronic systolic (congestive) heart failure; E11.22 Type 2 diabetes mellitus with diabetic chronic kidney disease; N18.9 Chronic kidney disease, unspecified; E86.0 Dehydration; G40.909 Epilepsy, unspecified, not intractable, without status epilepticus; I25.10 Atherosclerotic heart disease of native coronary artery without angina pectoris; I44.7 Left bundle-branch block, unspecified; I11.0 Hypertensive heart disease with heart failure; F32.9 Major depressive disorder, single episode, unspecified; I25.5 Ischemic cardiomyopathy; E78.5 Hyperlipidemia, unspecified; K21.9 Gastro-esophageal reflux disease without esophagitis; Z79.82 Long term (current) use of aspirin; Z79.899 Other long term (current) drug therapy; Z79.4 Long term (current) use of insulin; Z87.891 Personal history of nicotine dependence

== ENCOUNTER 2020-06-19 09:34 | Observation (INO) ==
--- NOTE | 2020-06-19 10:13 | Emergency Department Note ---
Impression & Plan Thoracic spine fracture, Fall, Back pain, Constipation ED Provider Note NAME: JOSHUA BENÍTEZ AGE: 89 SEX: M : 1930 ARRIVES VIA: Walk-In INFORMANT: Patient ED PROVIDER(S): James Gibbs DO CHIEF COMPLAINT: Fall, back pain and no bowel movement HPI: Patient is an 89-year-old male who fell on the as he was putting drops in his eyes. He fell onto his buttocks. He did not hit his head or neck. No head or neck pain. He notes he has been having pain in his lower back with movement. If he is sitting at rest he has no pain. Is located in the lower lumbar bilateral sides. He also notes that his been passing gas but has not had a bowel movement since the . Has been taking tmtr-yky-lynjusf medications without improvement. Denies any headache or change in vision. No chest pain or shortness of breath. No belly pain, nausea, vomiting. No dysuria, urgency or frequency. He does not feel as though he has to go to the bathroom at this time. Denies any new tingling or numbness in legs. No new weakness. ROS: See above HPI for pertinent positives & negatives. A total of 10 systems reviewed and were otherwise negative. PAST MEDICAL HISTORY:See Below PAST SURGICAL HISTORY:See Below FAMILY HISTORY:See Below SOCIAL HISTORY:See Below HOME MEDICATIONS:See Below ALLERGIES:See Below VITALS:See Below PHYSICAL EXAMINATION: GENERAL: Sitting up in bed, alert, well appearing, well nourished, no distress, non-toxic HEAD: NC/AT EYE EXAM: normal conjunctiva. PERRL and EOM's grossly intact. OROPHARYNX: no exudate, no erythema, lips, buccal mucosa, and tongue normal and mucous membranes are moist NECK: supple, no nuchal rigidity, no adenopathy, non-tender LUNGS: Clear to auscultation. Normal chest wall mechanics HEART: no murmurs, S1 normal and S2 normal ABDOMEN: abdomen soft, non-tender, normo-active bowel sounds, no masses, no rebo und or guarding. BACK: Back is symmetrical on inspection and there is no deformity, mild tenderness in the mid lumbar region tracking down to the lower lumbar paraspinal region SKIN: no rashes and no bruising UPPER EXTREMITIES: upper extremities are grossly normal. No tenderness throughout palpation of bilateral upper extremities LOWER EXTREMITIES: Flexion-extension of bilateral hips knees and ankles intact with no tenderness throughout the femurs or tib-fib's NEURO EXAM: Normal sensorium, cranial nerves II-XII grossly intact, normal speech, no gross weakness of arms, no gross weakness of legs. MEDICAL DECISION MAKING: Patient is an 89-year-old male who presents ER following mechanical fall on the . He is having lower back pain. IV was established blood work was obtained. Labs show no significant leukocytosis or anemia. BMP with a creatinine of 2 fairly consistent with previous as his baseline is about 1.6. Glucose slightly elevated to 36. Bilirubin LFTs and lipase was unremarkable. UA was unremarkable. Valproic acid was 74. Covid was negative. CT shows T12 burst fracture with 3 mm retropulsion. He has no focal weakness or numbness. No radicular symptoms. Discussed with Imani Tello from [facility]. They were agreeable to seeing the patient as an inpatient and recommended discussed with hospitalist for admission. Patient was updated bedside. Discussed with Dr. Kearns for further evaluation. Triage Nursing notes reviewed. Prior medical records reviewed Vital Signs: reviewed and remarkable for HTN and tachy Differential diagnosis: Differential diagnoses include major intracranial, cervical, spinal, thoracic, abdominal, pelvic and neurologic injury. Fracture, contusion, sprain, strain, laceration, abrasions included as well. ER treatment provided: See below Diagnostics interpreted by me: ECG: none Cardiac Monitoring: An order was placed for continuous cardiac monitoring. The monitor shows a rate of 70 with sinus rhythm. Laboratory studies: As stated above and show below. Imaging studies: CT of the abdomen pelvis and lumbar spine shows a T12 compression fracture with 3 mm retropulsion Consultation(s): Discussed with Imani from [facility] and they will evaluate the patient. I did recommend MRI and I discussed this with Dr. Kearns. 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 Surgical History History of cataract surgery History of craniotomy History of eye surgery Trabeculoplasty 2006,2007-2009 History of oral surgery History of tonsillectomy Family History Mother Cardiovascular disease Diabetes Social History Smoking Status: Former smoker Preferred Language: Omani Feels Safe at Home: Yes Allergies Allergies Allergy/AdvReac Type Severity Reaction Status Date / Time YARITZA Inhibitors Allergy Verified 06/19/20 10:51 ARB-Angiotensin Receptor Allergy Verified 06/19/20 10:51 Antagonist phenytoin Allergy Verified 06/19/20 10:51 Home Meds Home Medications Medication Instructions Recorded Confirmed aspirin 81 mg PO QAM 12/01/18 06/19/20 divalproex 250 mg PO TID 12/01/18 06/19/20 levetiracetam 500 mg PO BID 12/01/18 06/19/20 lovastatin 10 mg PO DAILY@1200 12/01/18 06/19/20 metoprolol tartrate 25 mg PO BID 12/01/18 06/19/20 hydrocortisone 2.5 % topical cream 1 appln TOPICAL HS PRN gm 01/28/19 06/19/20 vit C-vit I-wygano-wqbc ox-lutein 1 cap PO BID cap 01/28/19 06/19/20 226 mg-200 unit-5 mg-0.8 mg capsule blood-glucose meter #1 ea 06/26/19 03/15/20 insulin aspart U-100 100 unit/mL 30 units SQ .COMPLEX ml 12/03/19 06/19/20 subcutaneous solution insulin glargine 100 unit/mL 15 unit SQ HS ml 03/15/20 06/19/20 subcutaneous solution econazole 1 applic TOPICAL QID 06/19/20 06/19/20 furosemide 20 mg PO MOWEFR 06/19/20 06/19/20 [id number]-algal oil 1 cap PO DAILY 06/19/20 06/19/20 [Metanx (algal oil)] triamcinolone acetonide 1 applic TOPICAL BID 06/19/20 06/19/20 Previous Rx's Medication Instructions Recorded insulin syringe-needle U-100 0.3 #400 ea 12/03/19 mL 31 gauge x 5/16" blood sugar diagnostic #500 ea 12/24/19 Results & Data (ED) Vital Signs Vital Signs - 24 hr 06/19/20 09:48 06/19/20 10:23 06/19/20 11:30 Temperature 37.0 C Temperature Source Oral Pulse Rate 106 H Pulse Rate [Apical] 69 Respiratory Rate 18 18 Respiratory Effort / Characteristics Non-Labored Spontaneous Non-Labored Respiratory Depth Normal Normal Blood Pressure 168/97 H Blood Pressure [Left Arm] 151/76 H Blood Pressure Mean 120 Blood Pressure Mean [Left Arm] 101 Blood Pressure Position Sitting Blood Pressure Position [Left Arm] Pulse Oximetry 96 97 Oxygen Delivery Method Room Air Room Air Room Air Sepsis Recent Fever Within 48 Hours No Sepsis New/Unexplained Change in Mental Status No Sepsis Action Taken by Nursing No Action Required 06/19/20 12:35 Temperature Temperature Source Pulse Rate Pulse Rate [Apical] 72 Respiratory Rate 18 Respiratory Effort / Characteristics Respiratory Depth Blood Pressure Blood Pressure [Left Arm] 160/80 H Blood Pressure Mean Blood Pressure Mean [Left Arm] 106 Blood Pressure Position Blood Pressure Position [Left Arm] Lying Pulse Oximetry 98 Oxygen Delivery Method Room Air Sepsis Recent Fever Within 48 Hours Sepsis New/Unexplained Change in Mental Status Sepsis Action Taken by Nursing Laboratory Data Result diagrams: 06/19/20 10:17 06/19/20 10:17 Lab Results 06/19/20 06/19/20 06/19/20 Range/Units 10:17 10:17 10:17 WBC 5.53 (4.8-10.8) K/uL RBC 3.87 L (4.7-6.1) M/uL Hgb 13.1 L (14.0-18.0) g/dL Hct 39.0 L (42-52) % MCV 100.8 H (80-100) fL MCH 33.9 (25-34) pg MCHC 33.6 (32-36) g/dL RDW Std Deviation 49.8 H (36.4-46.3) fL RDW Coeff of Kerry 13.5 (11.5-14.5) % Plt Count 214 (130-400) K/uL MPV 11.1 H (7.4-10.4) fL Immature Gran % (Auto) 0.0 % Neut % (Auto) 55.9 % Lymph % (Auto) 23.1 % Creek % (Auto) 17.7 % Eos % (Auto) 2.9 % Baso % (Auto) 0.4 % Neut # (Auto) 3.09 (1.4-6.5) K/uL Lymph # (Auto) 1.28 (1.2-3.4) K/uL Creek # (Auto) 0.98 H (0.11-0.59) K/uL Eos # (Auto) 0.16 (0-0.5) K/uL Baso # (Auto) 0.02 (0-0.2) K/uL Immature Gran # (Auto) 0.00 (0.00-0.02) K/uL Sodium 137 (136-145) mmol/L Potassium 4.9 (3.5-5.1) mmol/L Chloride 104 (98-107) mmol/L Carbon Dioxide 28 (21-32) mmol/L Anion Gap 5.0 (3-11) BUN 48 H (7-18) mg/dl Creatinine 2.01 H (0.6-1.4) mg/dl Est Cr Clr Drug Dosing 23.0 ml/min Est GFR ( Amer) 33.3 Est GFR (Non-Af Amer) 28.8 BUN/Creatinine Ratio 24.0 H (10-20) Glucose 236 H (70-99) mg/dl Calcium 8.7 (8.5-10.1) mg/dl Total Bilirubin 0.6 (0.2-1) mg/dl AST 10 L (15-37) U/L ALT 11 L (12-78) U/L Alkaline Phosphatase 72 (45-117) U/L Total Protein 6.9 (6.4-8.2) gm/dl Albumin 3.1 L (3.4-5.0) gm/dl Globulin 3.8 (2.5-4.0) gm/dl Albumin/Globulin Ratio 0.8 L (0.9-2) Lipase 76 (73-393) U/L Urine Color Urine Appearance (Clear) Urine pH (4.5-7.5) Ur Specific [place] (1.000-1.030) Urine Protein (Negative) Urine Glucose (UA) (Negative) Urine Ketones (Negative) Urine Blood (Negative) Urine Nitrite (Negative) Urine Bilirubin (Negative) Urine Urobilinogen (Negative) Ur Leukocyte Esterase (Negative) Urine WBC (Auto) (0-5) /hpf Urine RBC (Auto) (0-4) /hpf U Hyaline Cast (Auto) (0-5) /lpf U Epithel Cells (Auto) (0-5) /lpf Urine Bacteria (Auto) (Negative) Valproic Acid 74 (50-100) mcg/ml SARS-CoV-2 Ag (Rapid) (Negative) 06/19/20 06/19/20 Range/Units 12:18 13:15 WBC (4.8-10.8) K/uL RBC (4.7-6.1) M/uL Hgb (14.0-18.0) g/dL Hct (42-52) % MCV (80-100) fL MCH (25-34) pg MCHC (32-36) g/dL RDW Std Deviation (36.4-46.3) fL RDW Coeff of Kerry (11.5-14.5) % Plt Count (130-400) K/uL MPV (7.4-10.4) fL Immature Gran % (Auto) % Neut % (Auto) % Lymph % (Auto) % Creek % (Auto) % Eos % (Auto) % Baso % (Auto) % Neut # (Auto) (1.4-6.5) K/uL Lymph # (Auto) (1.2-3.4) K/uL Creek # (Auto) (0.11-0.59) K/uL Eos # (Auto) (0-0.5) K/uL Baso # (Auto) (0-0.2) K/uL Immature Gran # (Auto) (0.00-0.02) K/uL Sodium (136-145) mmol/L Potassium (3.5-5.1) mmol/L Chloride (98-107) mmol/L Carbon Dioxide (21-32) mmol/L Anion Gap (3-11) BUN (7-18) mg/dl Creatinine (0.6-1.4) mg/dl Est Cr Clr Drug Dosing ml/min Est GFR ( Amer) Est GFR (Non-Af Amer) BUN/Creatinine Ratio (10-20) Glucose (70-99) mg/dl Calcium (8.5-10.1) mg/dl Total Bilirubin (0.2-1) mg/dl AST (15-37) U/L ALT (12-78) U/L Alkaline Phosphatase (45-117) U/L Total Protein (6.4-8.2) gm/dl Albumin (3.4-5.0) gm/dl Globulin (2.5-4.0) gm/dl Albumin/Globulin Ratio (0.9-2) Lipase (73-393) U/L Urine Color Yellow Urine Appearance Clear (Clear) Urine pH 6.0 (4.5-7.5) Ur Specific [place] 1.017 (1.000-1.030) Urine Protein 2+ H (Negative) Urine Glucose (UA) 1+ H (Negative) Urine Ketones Negative (Negative) Urine Blood Negative (Negative) Urine Nitrite Negative (Negative) Urine Bilirubin Negative (Negative) Urine Urobilinogen Negative (Negative) Ur Leukocyte Esterase Negative (Negative) Urine WBC (Auto) 0 (0-5) /hpf Urine RBC (Auto) 0-4 (0-4) /hpf U Hyaline Cast (Auto) 0 (0-5) /lpf U Epithel Cells (Auto) 0-5 (0-5) /lpf Urine Bacteria (Auto) Negative (Negative) Valproic Acid (50-100) mcg/ml SARS-CoV-2 Ag (Rapid) Negative (Negative) Discharge Plan Visit Data Chief Complaint: Fall Stated Complaint: FALL, BACK PAIN, SORE ED Provider: James Gibbs Discharge Problem: Thoracic spine fracture, Fall, Back pain, Constipation Forms Stand Alone Forms: [facility] Prescriptions Prescriptions: No Action hydrocortisone 2.5 % cream 1 appln topical HS PRN (Reason: Rash) RF: 0 PreserVision Lutein 226 mg-200 unit -5 mg-0.8 mg capsule 1 cap PO BID RF: 0 (DME) blood-glucose meter [OneTouch Verio Meter] misc See Dose Instructions .ROUTE .MEDSUPPLY Qty: 1 RF: 0 Novolog U-100 Insulin aspart 100 unit/mL solution 30 units SQ .COMPLEX RF: 0 Lantus U-100 Insulin 100 unit/mL solution 15 unit SQ HS RF: 0 (DME) OneTouch Verio test strips Strip See Dose Instructions .ROUTE .MEDSUPPLY Qty: 500 RF: 3 (DME) insulin syringe-needle U-100 [BD Insulin Syringe Ultra-Fine] 0.3 mL 31 gauge x 5/16" syringe See Dose Instructions .ROUTE .MEDSUPPLY Qty: 400 RF: 3 econazole 1 % Cream 1 applic TOPICAL QID RF: 0 triamcinolone acetonide 0.1 % Ointment 1 applic TOPICAL BID RF: 0 furosemide 20 mg tablet 20 mg PO MOWEFR RF: 0 [id number]-algal oil [Metanx (algal oil)] 3 mg-35 mg-2 mg -90.314 mg Capsule 1 cap PO DAILY RF: 0 levetiracetam 500 mg tablet 500 mg PO BID RF: 0 lovastatin 10 mg tablet 10 mg PO DAILY@1200 RF: 0 divalproex 250 mg tablet extended release 24 hr 250 mg PO TID RF: 0 metoprolol tartrate 25 mg tablet 25 mg PO BID RF: 0 aspirin 81 mg Tablet,Delayed Release (Dr/Ec) 81 mg PO QAM RF: 0 Discharge Problem: Thoracic spine fracture Qualifiers: Encounter type: initial encounter Thoracic vertebra fracture level: T12 Fracture type: closed Fracture morphology: unspecified fracture morphology Qualified Code(s): S22.089A - Unspecified fracture of T11-T12 vertebra, initial encounter for closed fracture Fall Qualifiers: Encounter type: initial encounter Qualified Code(s): W19.XXXA - Unspecified fall, initial encounter Back pain Qualifiers: Back pain location: low back pain Chronicity: acute Back pain laterality: unspecified Sciatica presence: without sciatica Qualified Code(s): M54.5 - Low back pain Constipation Qualifiers: Constipation type: unspecified constipation type Qualified Code(s): K59.00 - Constipation, unspecified
[2020-06-19 10:28] LABS: Basophils # (auto) 0.02 K/uL (0-0.2); Basophils % (auto) 0.4 %; Eosinophils # (auto) 0.16 K/uL (0-0.5); Eosinophils % (auto) 2.9 %; Hemoglobin 13.1 g/dL (14.0-18.0); Lymphocytes # (auto) 1.28 K/uL (1.2-3.4); Lymphocytes % (auto) 23.1 %; Mean Corpuscular Hemoglobin 33.9 pg (25-34); Mean Corpuscular Hgb Conc 33.6 g/dL (32-36); Mean Corpuscular Volume 100.8 fL (80-100); Mean Platelet Volume 11.1 fL (7.4-10.4); Monocytes # (auto) 0.98 K/uL (0.11-0.59); Monocytes % (auto) 17.7 %; Neutrophils # (auto) 3.09 K/uL (1.4-6.5); Neutrophils % (auto) 55.9 %; Platelet Count 214 K/uL (130-400); RDW Coefficient of Variation 13.5 % (11.5-14.5); RDW Standard Deviation 49.8 fL (36.4-46.3); Red Blood Count 3.87 M/uL (4.7-6.1); White Blood Count 5.53 K/uL (4.8-10.8)
[2020-06-19 10:49] LABS: Albumin Globulin Ratio 0.8 (0.9-2); Albumin Level 3.1 gm/dl (3.4-5.0); Bilirubin,Total 0.6 mg/dl (0.2-1); Calcium 8.7 mg/dl (8.5-10.1); Est GFR (African American) 33.3; Est GFR (Non-African American) 28.8; Globulin 3.8 gm/dl (2.5-4.0); Total Protein 6.9 gm/dl (6.4-8.2)
[2020-06-19 11:09] LABS: Potassium 4.9 mmol/L (3.5-5.1)
--- NOTE | 2020-06-19 11:24 | CT Scan Report ---
CT OF THE ABDOMEN AND PELVIS WITHOUT CONTRAST CLINICAL HISTORY: Constipation. No recent bowel movement. Recent fall. COMPARISON STUDY: No previous studies for comparison. TECHNIQUE: Axial images of the abdomen and pelvis were obtained without IV contrast. Images were revi ewed in the axial, sagittal, and coronal planes. Automated exposure control was utilized for the sintia dy. A dose lowering technique was utilized adhering to the principles of ALARA. FINDINGS: Please note that the lumbar spine CT will be reported separately. Visualized portions of th e lower chest demonstrate several right pleural noncalcified nodules that measure up to 1.3 cm. Evalu ation of the abdomen and pelvis is suboptimal on this unenhanced examination. Unenhanced images of th e liver, spleen, adrenal glands are unremarkable with exception of calcified granulomas within the sp nick. There are calcifications within the uncinate process and pancreatic head. There is no pancreati c ductal dilatation. There is no biliary ductal dilatation. No hydronephrosis is present. A water att enuation 2.8 cm lesion within the lower pole of the left kidney is suboptimally assessed on this unen hanced exam but favors a cyst. There is mild wall thickening of the anterior wall of the bladder. The re is no evidence for a bowel obstruction. Moderate amount stool is noted. The appendix is normal. Th ere is no stool within the rectum. No pneumatosis, free air or portal vein gas is present. Fat-contai rubin upper abdominal ventral hernia is noted. Several vascular stents are noted. These are suboptimal ly assessed on this unenhanced examination. No acute pelvic fracture is noted. There is no acute hip fracture. Note is made of an acute mild compression fracture of the superior endplate of T12 with min imal retropulsion of 3 mm. No acute lumbar spine fracture is noted. Grade one anterolisthesis of L5 o n S1 is noted. IMPRESSION: 1. Acute mild T12 compression fracture with 25% loss of vertebral body height and minimal retropulsio n. 2. Moderate amount stool within the colon. No evidence for a bowel obstruction. 3. Mild anterior bladder wall thickening which can be correlated with urinalysis and urine cytology. If abnormal, Urology consultation is recommended. 4. Several noncalcified pleural nodules within the right lower right hemithorax. Follow-up chest CT i n 6 months to ensure stability is recommended. ACT 112: Negative or not required by law. Electronically signed by: Zain Haines M.D. 06/19/2020 11:23 AM
--- NOTE | 2020-06-19 11:28 | CT Scan Report ---
CT lumbar spine wo con CLINICAL HISTORY: lower back pain COMPARISON STUDY: No previous studies for comparison. TECHNIQUE: Axial images of the lumbar spine were obtained without IV contrast. Sagittal and coronal r econstructions were viewed. Automated exposure control was utilized for the study. A dose lowering t echnique was utilized adhering to the principles of ALARA. FINDINGS: Note is made of 7 mm anterolisthesis of L5 on S1 due to bilateral L5 pars defects. This is chronic. There is an acute mild compression fracture of the superior endplate of T12 with 25% loss of vertebral body height and 3 mm of retropulsion. No acute lumbar spine fracture is noted. There is mo derate multilevel facet arthrosis. There is moderate disc space narrowing and ossified ptosis at L5-S 1. Central canal and neural foramen are suboptimally assessed given CT technique. Sacroiliac joints a re intact. The CT of the abdomen and pelvis will be reported separately. IMPRESSION: 1. Acute mild T12 compression fracture with 25% loss of vertebral body height and minimal retropulsio n. 2. No acute lumbar spine fracture. 3. 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 4. 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 ACT 112: Negative or not required by law. Electronically signed by: Zain Haines M.D. 06/19/2020 11:27 AM
[2020-06-19 12:30] LABS: Appearance Urine Clear (Clear); Bacteria Urine Automated Negative (Negative); Bilirubin Urine Negative (Negative); Blood Urine Negative (Negative); Cast Urine Automated 0 /lpf (0-5); Color Urine Yellow; Epithelial Cell Urine Auto 0-5 /lpf (0-5); Glucose Urine UA 1+ (Negative); Ketones Urine Negative (Negative); Leukocyte Esterase Urine Negative (Negative); Nitrite Urine Negative (Negative); Protein Urine 2+ (Negative); RBC Urine Automated 0-4 /hpf (0-4); Specific Gravity Urine 1.017 (1.000-1.030); Urobilinogen Urine Negative (Negative); WBC Urine Automated 0 /hpf (0-5)
[2020-06-19] MEDS ORDERED: oxyCODONE/ACETAMINOPHEN 5mg/325mg TAB PO PRN (13:48)
--- NOTE | 2020-06-19 14:07 | History & Physical Report ---
Date of Service June 19, 2020 Assessment & Plan (1) Fall: Status post mechanical fall on 15 June while trying to put drops in the eyes No loss of consciousness and no significant injury except ongoing back pain since then We will get PT and OT evaluation (2) Thoracic spine fracture: As above the scan of the spine did show 25% acute compression fracture involving T12 The ER physician did discuss that with slab conditioner supervisor Ortho who recommended to have an MRI of the spine Likely going to be conservative management We will put him on oral Percocet for pain control (3) Back pain: As above (4) Constipation: Doubt constipation is due to spinal cord injury as he has been passing gas Does not have any problem with voiding We will put him on laxatives (5) Diabetic peripheral neuropathy associated with type 2 diabetes mellitus: History of uncontrolled diabetes Continue with his current doses of insulin We will check hemoglobin A1c tomorrow (6) HTN (hypertension): Seems to be elevated Has been getting metoprolol We will add Norvasc (7) Chronic kidney disease: We will get minimal amount of intravenous fluid for mild dehydration Monitor PRP His Lasix is on hold right now and will need to be restarted down the line (8) Seizure disorder: No history of recent seizure We will continue current medications Has history of intracranial hemorrhage status post surgery and 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 None of them are acute at this time History of Present Illness Chief Complaint: Status post mechanical fall on of this month with back pain and constipation Primary Care Provider: Aly Muñiz MD He is an 89-year-old male with significant past medical history including chronic systolic heart failure secondary to ischemic cardiomyopathy with EF of 35 to 40% on TTE 2011, CAD, PVD status post surgery, hypertension, diabetes requiring insulin, seizure disorder,history of intracranial hemorrhage status post surgery, history of oral cavity cancer status post surgery and chronic kidney disease apparently has had a fall on of this month when he was trying to take eyedrops. He landed on his bottom without any significant injury and managed to get get up and has been ambulating with difficulty since then. His pain at the lower back seems to be worse while standing and with movement and apparently he has not moved his bowel since the fall but has been voiding normally. He denies any numbness and or tingling involving the lower extremities and does not have any shooting down pain which goes down to the legs. He called the [facility] PCPs office today and was advised to come to the emergency room for further evaluation. Lumbar spine CT showed acute mild T12 compression fracture with 21st 5% loss of vertebral body height and minimal retropulsion, from that point he was admitted to medical telemetry unit for continuation of care. Allergies Allergy/AdvReac Type Severity Reaction Status Date / Time YARITZA Inhibitors Allergy Verified 06/19/20 10:51 ARB-Angiotensin Receptor Allergy Verified 06/19/20 10:51 Antagonist phenytoin Allergy Verified 06/19/20 10:51 Home Medications Medication Instructions Recorded Confirmed Type aspirin 81 mg PO QAM 12/01/18 06/19/20 History divalproex 250 mg PO TID 12/01/18 06/19/20 History levetiracetam 500 mg PO BID 12/01/18 06/19/20 History lovastatin 10 mg PO DAILY@1200 12/01/18 06/19/20 History metoprolol tartrate 25 mg PO BID 12/01/18 06/19/20 History hydrocortisone 2.5 % topical cream 1 appln TOPICAL HS PRN gm 01/28/19 06/19/20 History vit C-vit O-[id number]-[id number] ox-lutein 1 cap PO BID cap 01/28/19 06/19/20 History 226 mg-200 unit-5 mg-0.8 mg capsule blood-glucose meter #1 ea 06/26/19 03/15/20 History insulin aspart U-100 100 unit/mL 30 units SQ .COMPLEX ml 12/03/19 06/19/20 History subcutaneous solution insulin syringe-needle U-100 0.3 #400 ea 12/03/19 03/15/20 Rx mL 31 gauge x /16" blood sugar diagnostic #500 ea 12/24/19 03/15/20 Rx insulin glargine 100 unit/mL 15 unit SQ HS ml 03/15/20 06/19/20 History subcutaneous solution econazole 1 applic TOPICAL QID 06/19/20 06/19/20 History furosemide 20 mg PO MOWEFR 06/19/20 06/19/20 History [id number]-algal oil 1 cap PO DAILY 06/19/20 06/19/20 History [Metanx (algal oil)] triamcinolone acetonide 1 applic TOPICAL BID 06/19/20 06/19/20 History Past Med/Surg History Medical History (Updated 06/19/20 @ 14:06 by Mary Kearns MD) CAD (coronary artery disease) Diabetes 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 Surgical History History of cataract surgery History of craniotomy History of eye surgery Trabeculoplasty 2006,2007-, 2009 History of oral surgery History of tonsillectomy Family History Mother Cardiovascular disease Diabetes Social History Smoking Status: Former smoker Preferred Language: Italian Feels Safe at Home: Yes Review of Systems Review of Systems: All systems reviewed and are unremarkable except as noted below Respiratory: no cough and no dyspnea Cardiovascular: no chest pain and no palpitations Gastrointestinal: + problem reported (Bowel has not been moving since of this month); no abdominal pain, no nausea and no vomiting Genitourinary: no dysuria and no urinary frequency Musculoskeletal: + back pain (Without any radiculopathy and or local tenderness) Neurologic: Physical Exam Physical Exam: Lying in bed comfortably Constitutional: well developed and well nourished; no acute distress and not ill appearing Eyes: PERRL, conjunctivae normal, anicteric sclerae ENMT: external ear and nose normal, oropharynx normal Neck: trachea midline, no thyromegaly Respiratory: normal respiratory effort; no respiratory distress Auscultation: lungs clear to auscultation bilaterally Cardiovascular: Rate/Rhythm: regular rate and regular rhythm Heart Sounds: no murmur Extremities: + edema (Trace to 1+ edema bilaterally) Gastrointestinal (Abdomen): Inspection/Auscultation: normal bowel sounds; abdomen not distended Percussion/Palpation: abdomen soft; abdomen nontender Musculoskeletal: No acute arthritis in any joint. No spinal tenderness noted Neurologic: Alert, awake and oriented x3. No focal sensory and motor deficit appreciated Psychiatric: A+Ox3, euthymic affect Lymphatic: no cervical or axillary lymphadenopathy Results & Data Results & Data ([facility]) Vital Signs (Past 12 Hours) Vital Signs Temp Pulse Pulse Resp BP BP Pulse Ox 06/19/20 12:35 72 18 160/80 H 98 06/19/20 11:30 69 18 151/76 H 97 06/19/20 09:48 37.0 C 106 H 18 168/97 H 96 Laboratory Results Short CBC 06/19/20 Range/Units 10:17 WBC 5.53 (4.8-10.8) K/uL Hgb 13.1 L (14.0-18.0) g/dL Hct 39.0 L (42-52) % Plt Count 214 (130-400) K/uL BMP 06/19/20 10:17 Sodium 137 Potassium 4.9 Chloride 104 Carbon Dioxide 28 BUN 48 H Creatinine 2.01 H Glucose 236 H Calcium 8.7 Liver Function 06/19/20 Range/Units 10:17 Total Bilirubin 0.6 (0.2-1) mg/dl AST 10 L (15-37) U/L ALT 11 L (12-78) U/L Alkaline Phosphatase 72 (45-117) U/L Albumin 3.1 L (3.4-5.0) gm/dl Urine 06/19/20 Range/Units 12:18 Urine Color Yellow Urine Appearance Clear (Clear) Urine pH 6.0 (4.5-7.5) Ur Specific [place] 1.017 (1.000-1.030) Urine Protein 2+ H (Negative) Urine Glucose (UA) 1+ H (Negative) Medications Administered Current Inpatient Medications Oxycodone/Acetaminophen (Oxycodone/Acetaminophen 5mg/325mg Tab) 1 tab PO Q4H PRN PRN Reason: Pain Stop: 07/03/20 13:47 Code Status & VTE Plan VTE Prophylaxis Plan VTE Prophylaxis will be ordered: Yes (1) Fall Encounter type: initial encounter Qualified Code(s): W19.XXXA - Unspecified fall, initial encounter (2) Thoracic spine fracture Encounter type: initial encounter Fracture morphology: unspecified fracture morphology Fracture type: closed Thoracic vertebra fracture level: T12 Q ualified Code(s): S22.089A - Unspecified fracture of T11-T12 vertebra, initial encounter for closed fracture (3) Back pain Back pain laterality: unspecified Back pain location: low back pain Chronicity: acute Sciatica presence: without sciatica Qualified Code(s): M54.5 - Low back pain (4) Constipation Constipation type: unspecified constipation type Qualified Code(s): K59.00 - Constipation, unspecified
[2020-06-19] MEDS ORDERED: INSULIN ASPART PER UNIT SQ SCH (14:29)
[2020-06-19] MEDS ORDERED: HYDROCORTISONE 2.5% CR 30 GM TUBE EXT PRN (14:29)
[2020-06-19] MEDS: SODIUM CHLORIDE 0.9% 1000ML 1,000 ML IV SCH (15:14)
[2020-06-19] MEDS: POLYETHYLENE (MIRALAX) 17 GM PACK PO SCH (15:24)
[2020-06-19] MEDS ORDERED: DEXTROSE 50% 50 ML SYRINGE IV PRN (15:45)
[2020-06-19] MEDS ORDERED: GLUCAGON FOR INJ 1 MG VIAL IM PRN (15:45)
[2020-06-19] MEDS ORDERED: CARBOHYDRATES FOR HYPOGLYCEMIA PO PRN (15:45)
[2020-06-19] MEDS ORDERED: GLUCOSE 10 TABS/TUBE PO PRN (15:45)
[2020-06-19] MEDS ORDERED: GLUCOSE 40% GEL 15 GM TUBE PO PRN (15:45)
[2020-06-19] MEDS: DIVALPROEX EXTENDED RELEASE 250 MG TABCR PO SCH ×2 (16:04→20:42)
[2020-06-19] MEDS: INSULIN ASPART 100 UNITS/ML 3 ML PEN SC SCH ×2 (17:22→20:46)
[2020-06-19] MEDS: ECONAZOLE NITRATE 1% CRM 15 GM TUBE TOP SCH ×2 (17:42→20:42)
[2020-06-19] MEDS: TRIAMCINOLONE ACET 0.1% OINT 15 GM TUBE TOP SCH (20:42)
[2020-06-19] MEDS: CEROVITE ADV FORMULA TAB PO SCH (20:42)
[2020-06-19] MEDS: METOPROLOL TARTRATE 25 MG TAB PO SCH (20:42)
[2020-06-19] MEDS: DOCUSATE SODIUM 100 MG CAP PO SCH (20:42)
[2020-06-19] MEDS: levETIRAcetam 500 MG TAB PO SCH (20:42)
[2020-06-19] MEDS ORDERED: ACETAMINOPHEN 325 MG TAB PO PRN (20:55)
[2020-06-19] MEDS ORDERED: INSULIN GLARGINE SOLOSTAR 100 UNITS/ML 3 ML PEN SC SCH (21:00)
[2020-06-20] MEDS: SODIUM CHLORIDE 0.9% 1000ML 1,000 ML IV SCH (03:18)
[2020-06-20 06:41] LABS: Basophils # (auto) 0.02 K/uL (0-0.2); Basophils % (auto) 0.3 %; Eosinophils # (auto) 0.31 K/uL (0-0.5); Hematocrit (blood only) 37.1 % (42-52); Hemoglobin 12.4 g/dL (14.0-18.0); Immature Granulocytes # (auto) 0.01 K/uL (0.00-0.02); Immature Granulocytes % (auto) 0.2 %; Lymphocytes # (auto) 1.76 K/uL (1.2-3.4); Lymphocytes % (auto) 28.3 %; Mean Corpuscular Hemoglobin 33.7 pg (25-34); Mean Corpuscular Hgb Conc 33.4 g/dL (32-36); Mean Corpuscular Volume 100.8 fL (80-100); Mean Platelet Volume 11.2 fL (7.4-10.4); Monocytes # (auto) 1.21 K/uL (0.11-0.59); Monocytes % (auto) 19.5 %; Neutrophils % (auto) 46.7 %; Platelet Count 192 K/uL (130-400); RDW Coefficient of Variation 13.4 % (11.5-14.5); RDW Standard Deviation 49.7 fL (36.4-46.3); Red Blood Count 3.68 M/uL (4.7-6.1); White Blood Count 6.21 K/uL (4.8-10.8)
[2020-06-20 07:24] LABS: BUN Creatinine Ratio 27.3 (10-20); Calcium 8.1 mg/dl (8.5-10.1); Creatinine Clr Calc Pharmacy 30.9 ml/min; Est GFR (African American) 47.1; Est GFR (Non-African American) 40.7; Potassium 4.7 mmol/L (3.5-5.1)
[2020-06-20] MEDS: METOPROLOL TARTRATE 25 MG TAB PO SCH (07:59)
[2020-06-20] MEDS: DIVALPROEX EXTENDED RELEASE 250 MG TABCR PO SCH ×3 (07:59→12:29)
[2020-06-20] MEDS: DOCUSATE SODIUM 100 MG CAP PO SCH (07:59)
[2020-06-20] MEDS: levETIRAcetam 500 MG TAB PO SCH (07:59)
[2020-06-20] MEDS: POLYETHYLENE (MIRALAX) 17 GM PACK PO SCH (07:59)
[2020-06-20] MEDS: CEROVITE ADV FORMULA TAB PO SCH (08:00)
[2020-06-20] MEDS: TRIAMCINOLONE ACET 0.1% OINT 15 GM TUBE TOP SCH (08:01)
[2020-06-20] MEDS: ECONAZOLE NITRATE 1% CRM 15 GM TUBE TOP SCH ×3 (08:02→17:42)
[2020-06-20] MEDS: INSULIN ASPART 100 UNITS/ML 3 ML PEN SC SCH ×3 (08:06→17:39)
[2020-06-20] MEDS ORDERED: ASPIRIN 81 MG ECTAB PO SCH (09:00)
[2020-06-20] MEDS ORDERED: VITAMIN B COMPLEX TAB PO SCH (09:00)
--- NOTE | 2020-06-20 11:53 | Magnetic Resonance Report ---
MR thoracic spine wo con CLINICAL HISTORY: T12 fracture PRIOR STUDIES: CT scan the lumbar spine dated 06/19/2020 TECHNIQUE: MR scanning of the thoracic spine was performed using multiple pulse sequences. No gadoli nium was administered. FINDINGS: There is an L1 focal fatty rest/hemangioma. There is T12 superior endplate marrow edema indicative of an acute/subacute fracture. There is 25% lo ss in height. There is 3 mm of retropulsion. No spinal cord lesions are visualized. There are no findings to indicate epidural hematoma. IMPRESSION: 1. Acute/subacute T12 compression fracture with 25% loss in height and 3 mm of retropulsion 2. No evidence of epidural hematoma 3. No spinal cord lesions identified ACT 112: Negative or not required by law. Electronically signed by: Orestes Rios M.D. 06/20/2020 11:52 AM
[2020-06-20] MEDS ORDERED: LOVASTATIN 20 MG TAB PO SCH (12:00)
--- NOTE | 2020-06-20 12:18 | Orthopedic Consultation ---
Date of Consultation June 20, 2020 Assessment & Plan (1) Thoracic spine fracture: This time the patient's fracture seems to be a minimal restriction. I have requested that he undergo very light activity no lifting no more than 5pounds we discussed possible TLSO brace. Is probably not reasonable at this time to subject him to a brace is his pain is well controlled. We will see him in the office in the next few weeks for follow-up x-rays. He is okay for discharge home per orthopedics. Present on Admission?: Yes History of Present Illness Reason for Consultation: Back pain status post fall Attending Physician: Nancy Asif MD History of Present Illness This very pleasant 89-year-old male that fell recently was taken to emergency room and diagnosed with this. Pleat fracture of T12. Today he is in the chair at the bedside. He is comfortable. He is eating without difficulty. Is been able to ambulate to the bathroom several times today without difficulty. Describes most of his pain at the lumbosacral junction and locked at the thoracolumbar region. Allergies Allergy/AdvReac Type Severity Reaction Status Date / Time YARITZA Inhibitors Allergy Verified 06/19/20 10:51 ARB-Angiotensin Receptor Allergy Verified 06/19/20 10:51 Antagonist phenytoin Allergy Verified 06/19/20 10:51 Home Medications Medication Instructions Recorded Confirmed Type aspirin 81 mg PO QAM 12/01/18 06/19/20 History divalproex 250 mg PO TID 12/01/18 06/19/20 History levetiracetam 500 mg PO BID 12/01/18 06/19/20 History lovastatin 10 mg PO DAILY@1200 12/01/18 06/19/20 History metoprolol tartrate 25 mg PO BID 12/01/18 06/19/20 History hydrocortisone 2.5 % topical cream 1 appln TOPICAL HS PRN gm 01/28/19 06/19/20 History vit C-vit R-[id number] ox-lutein 1 cap PO BID cap 01/28/19 06/19/20 History 226 mg-200 unit-5 mg-0.8 mg capsule blood-glucose meter #1 ea 06/26/19 03/15/20 History insulin aspart U-100 100 unit/mL 30 units SQ .COMPLEX ml 12/03/19 06/19/20 History subcutaneous solution insulin syringe-needle U-100 0.3 #400 ea 12/03/19 03/15/20 Rx mL 31 gauge x 5/16" blood sugar diagnostic #500 ea 12/24/19 03/15/20 Rx insulin glargine 100 unit/mL 15 unit SQ HS ml 03/15/20 06/19/20 History subcutaneous solution econazole 1 applic TOPICAL QID 06/19/20 06/19/20 History furosemide 20 mg PO MOWEFR 06/19/20 06/19/20 History [id number]-algal oil 1 cap PO DAILY 06/19/20 06/19/20 History [Metanx (algal oil)] triamcinolone acetonide 1 applic TOPICAL BID 06/19/20 06/19/20 History Patient History Medical History (Updated 06/19/20 @ 14:06 by Mary Kearns MD) CAD (coronary artery disease) Diabetes 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 Surgical History History of cataract surgery History of craniotomy History of eye surgery Trabeculoplasty 2006,2007-, 2009 History of oral surgery History of tonsillectomy Family History Mother Cardiovascular disease Diabetes Social History Smoking Status: Former smoker Hx Alcohol Use: Yes Alcohol type: beer Hx Substance Use: No Preferred Language: Persian Communication Ability: Effective Presser Hand Required: No Beliefs That Will Affect Care: None Current Living Situation: Spouse Feels Safe at Home: Yes Safety Concerns: Feels Safe At This Time Assistive Devices: Cane Physical Exam Physical Exam: On exam he has no pain to palpation or percussion of the thoracolumbar region. Some tenderness palpation at the lumbosacral junction on the left. Has reasonable strength testing lower extremities. Appears very comfortable. Results & Data ([facility]) Vital Signs (Past 12 Hours) Vital Signs Temp Pulse Resp BP Pulse Ox 06/20/20 11:40 37.0 C 78 19 151/76 H 97 06/20/20 06:56 36.7 C 81 18 143/69 H 98 06/20/20 04:44 36.6 C 65 18 153/72 H 98 (1) Thoracic spine fracture Encounter type: initial encounter Fracture morphology: unspecified fracture morphology Fracture type: closed Thoracic vertebra fracture level: T12 Qualified Code(s): S22.089A - Unspecified fracture of T11-T12 vertebra, initial encounter for closed fracture
--- NOTE | 2020-06-20 15:02 | Hospitalist Progress Note ---
Date of Service June 20, 2020 Assessment & Plan (1) Fall: (2) Thoracic spine fracture: Status post mechanical fall on 15 June while trying to put drops in the eyes No loss of consciousness and no significant injury except ongoing back pain since then CT lumbar spine did show 25% acute compression fracture involving T12 MRI noted Ortho recommendations appreciated Pain controlled Await PT/OT evaluation (3) Back pain: (4) Constipation: Continue bowel regimen (5) Diabetic peripheral neuropathy associated with type 2 diabetes mellitus: History of uncontrolled diabetes Continue with his current doses of insulin A1c still pending (6) HTN (hypertension): BP has been 140s-150s/70s Continue metoprolol Will not add another med at this time due to fall risk (7) Chronic kidney disease: Cr is 1.5 today. 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 Admission and Anticipated Discharge Date Admission Date: June 19, 2020 Subjective Patient seen and examined Patient reports that he has no low back pain at rest but only has some pain with activity Denies any other new complaints at this time Reports chronic visual deficits Physical Exam Constitutional: + well hydrated; no acute distress Elderly man Eyes: PERRL, conjunctivae normal, anicteric sclerae ENMT: external ear and nose normal, oropharynx normal Respiratory: normal respiratory effort, lungs clear to auscultation Cardiovascular: Rate/Rhythm: regular rate and regular rhythm S1 S2 Gastrointestinal (Abdomen): normal bowel sounds, soft, nontender, no hepatosplenomegaly Musculoskeletal: No tenderness on palpation of lumbar region Power is at least 4+ in both lower extremities Neurologic: PERRL, EOMI, accommodation nl, no face palsy, no dysarthria Psychiatric: A+Ox3, euthymic affect Results & Data Results & Data ([facility]) Vital Signs (Past 12 Hours) Vital Signs Temp Pulse Resp BP Pulse Ox 06/20/20 11:40 37.0 C 78 19 151/76 H 97 06/20/20 06:56 36.7 C 81 18 143/69 H 98 06/20/20 04:44 36.6 C 65 18 153/72 H 98 Laboratory Results Laboratory Results - last 24 hr 06/19/20 06/19/20 06/20/20 16:33 20:38 05:35 WBC 6.21 RBC 3.68 L Hgb 12.4 L Hct 37.1 L MCV 100.8 H MCH 33.7 MCHC 33.4 RDW Std Deviation 49.7 H RDW Coeff of [place] 13.4 Plt Count 192 MPV 11.2 H Immature Gran % (Auto) 0.2 Neut % (Auto) 46.7 Lymph % (Auto) 28.3 [place] % (Auto) 19.5 Eos % (Auto) 5.0 Baso % (Auto) 0.3 Neut # (Auto) 2.90 Lymph # (Auto) 1.76 [place] # (Auto) 1.21 H Eos # (Auto) 0.31 Baso # (Auto) 0.02 Immature Gran # (Auto) 0.01 Sodium Potassium Chloride Carbon Dioxide Anion Gap BUN Creatinine Est Cr Clr Drug Dosing Est GFR ( Amer) Est GFR (Non-Af Amer) BUN/Creatinine Ratio Glucose POC Glucose 180 H 263 H Estimat Average Glucose Hemoglobin A1c Calcium 06/20/20 06/20/20 06/20/20 05:35 05:35 08:05 WBC RBC Hgb Hct MCV MCH MCHC RDW Std Deviation RDW Coeff of [place] Plt Count MPV Immature Gran % (Auto) Neut % (Auto) Lymph % (Auto) [place] % (Auto) Eos % (Auto) Baso % (Auto) Neut # (Auto) Lymph # (Auto) [place] # (Auto) Eos # (Auto) Baso # (Auto) Immature Gran # (Auto) Sodium 137 Potassium 4.7 Chloride 106 Carbon Dioxide 23 Anion Gap 8.0 BUN 41 H Creatinine 1.51 H D Est Cr Clr Drug Dosing 30.9 Est GFR ( Amer) 47.1 Est GFR (Non-Af Amer) 40.7 BUN/Creatinine Ratio 27.3 H Glucose 186 H POC Glucose 299 H Estimat Average Glucose Pending Hemoglobin A1c Pending Calcium 8.1 L 06/20/20 11:34 WBC RBC Hgb Hct MCV MCH MCHC RDW Std Deviation RDW Coeff of [place] Plt Count MPV Immature Gran % (Auto) Neut % (Auto) Lymph % (Auto) [place] % (Auto) Eos % (Auto) Baso % (Auto) Neut # (Auto) Lymph # (Auto) [place] # (Auto) Eos # (Auto) Baso # (Auto) Immature Gran # (Auto) Sodium Potassium Chloride Carbon Dioxide Anion Gap BUN Creatinine Est Cr Clr Drug Dosing Est GFR ( Amer) Est GFR (Non-Af Amer) BUN/Creatinine Ratio Glucose POC Glucose 236 H Estimat Average Glucose Hemoglobin A1c Calcium Diagnostic Findings Lumbar CT Note is made of 7 mm anterolisthesis of L5 on S1 due to bilateral L5 pars defects. This is chronic. There is an acute mild compression fracture of the superior endplate of T12 with 25% loss of vertebral body height and 3 mm of retropulsion. No acute lumbar spine fracture is noted. There is moderate multilevel facet arthrosis. There is moderate disc space narrowing and ossified ptosis at L5-S1. Central canal and neural foramen are suboptimally assessed given CT technique. Sacroiliac joints are intact. The CT of the abdomen and pelvis will be reported separately. IMPRESSION: 1. Acute mild T12 compression fracture with 25% loss of vertebral body height and minimal retropulsion. 2. No acute lumbar spine fracture. 3. 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 4. 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 MRI Thoracic Spine There is an L1 focal fatty rest/hemangioma. There is T12 superior endplate marrow edema indicative of an acute/subacute fracture. There is 25% loss in height. There is 3 mm of retropulsion. No spinal cord lesions are visualized. There are no findings to indicate epidural hematoma. IMPRESSION: 1. Acute/subacute T12 compression fracture with 25% loss in height and 3 mm of retropulsion 2. No evidence of epidural hematoma 3. No spinal cord lesions identified (1) Thoracic spine fracture Encounter type: initial encounter Fracture morphology: unspecified fracture morphology Fracture type: closed Thoracic vertebra fracture level: T12 Qualified Code(s): S22.089A - Unspecified fracture of T11-T12 vertebra, initial encounter for closed fracture (2) Back pain Back pain laterality: unspecified Back pain location: low back pain Chronicity: acute Sciatica presence: without sciatica Qualified Code(s): M54.5 - Low back pain (3) Constipation Constipation type: unspecified constipation type Qualified Code(s): K59.00 - Constipation, unspecified (4) Fall Encounter type: initial encounter Qualified Code(s): W19.XXXA - Unspecified fall, initial encounter
--- NOTE | 2020-06-20 18:50 | Discharge Summary ---
Date of Service June 20, 2020 Admission HPI Per Admitting Provider He is an 89-year-old male with significant past medical history including chronic systolic heart failure secondary to ischemic cardiomyopathy with EF of 35 to 40% on TTE 2011, CAD, PVD status post surgery, hypertension, diabetes requiring insulin, seizure disorder,history of intracranial hemorrhage status post surgery, history of oral cavity cancer status post surgery and chronic kidney disease apparently has had a fall on of this month when he was trying to take eyedrops. He landed on his bottom without any significant injury and managed to get get up and has been ambulating with difficulty since then. His pain at the lower back seems to be worse while standing and with movement and apparently he has not moved his bowel since the fall but has been voiding normally. He denies any numbness and or tingling involving the lower extremities and does not have any shooting down pain which goes down to the legs. He called the [facility] PCPs office today and was advised to come to the emergency room for further evaluation. Lumbar spine CT showed acute mild T12 compression fracture with 21st 5% loss of vertebral body height and minimal retropulsion, from that point he was admitted to medical telemetry unit for continuation of care. Admission Exam Per Admitting Provider Physical Exam: Lying in bed comfortably Constitutional: well developed and well nourished; no acute distress and not ill appearing Eyes: PERRL, conjunctivae normal, anicteric sclerae ENMT: external ear and nose normal, oropharynx normal Neck: trachea midline, no thyromegaly Respiratory: normal respiratory effort; no respiratory distress Auscultation: lungs clear to auscultation bilaterally Cardiovascular: Rate/Rhythm: regular rate and regular rhythm Heart Sounds: no murmur Extremities: + edema (Trace to 1+ edema bilaterally) Gastrointestinal (Abdomen): Inspection/Auscultation: normal bowel sounds; abdomen not distended Percussion/Palpation: abdomen soft; abdomen nontender Musculoskeletal: No acute arthritis in any joint. No spinal tenderness noted Neurologic: Alert, awake and oriented x3. No focal sensory and motor deficit appreciated Psychiatric: A+Ox3, euthymic affect Lymphatic: no cervical or axillary lymphadenopathy Principal Diagnosis Fall T 12 compression fracture Discharge Exam Constitutional + well hydrated; no acute distress Eyes PERRL, conjunctivae normal, anicteric sclerae ENMT external ear and nose normal, oropharynx normal Respiratory normal respiratory effort, lungs clear to auscultation Cardiovascular Rate/Rhythm: regular rate and regular rhythm S1 S2 Gastrointestinal (Abdomen) normal bowel sounds, soft, nontender, no hepatosplenomegaly Musculoskeletal No tenderness on palpation of lumbar region Power is at least 4+ in both lower extremities Neurologic PERRL, EOMI, accommodation nl, no face palsy, no dysarthria Psychiatric A+Ox3, euthymic affect Discharge Data Allergies Allergy/AdvReac Type Severity Reaction Status Date / Time YARITZA Inhibitors Allergy Verified 06/19/20 10:51 ARB-Angiotensin Receptor Allergy Verified 06/19/20 10:51 Antagonist phenytoin Allergy Verified 06/19/20 10:51 Consultations 06/19/20 12:29 ED Decision to Admit Stat 06/19/20 14:11 Consult Orthopedic Surgery Routine Ordered Studies 06/19/20 10:10 CT lumbar spine wo con Stat Note is made of 7 mm anterolisthesis of L5 on S1 due to bilateral L5 pars defects. This is chronic. There is an acute mild compression fracture of the superior endplate of T12 with 25% loss of vertebral body height and 3 mm of retropulsion. No acute lumbar spine fracture is noted. There is moderate multilevel facet arthrosis. There is moderate disc space narrowing and ossified ptosis at L5-S1. Central canal and neural foramen are suboptimally assessed given CT technique. Sacroiliac joints are intact. The CT of the abdomen and pelvis will be reported separately. IMPRESSION: 1. Acute mild T12 compression fracture with 25% loss of vertebral body height and minimal retropulsion. 2. No acute lumbar spine fracture. 3. 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 4. 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 06/19/20 10:54 CT abd pelvis wo con Stat Visualized portions of the lower chest demonstrate several right pleural noncalcified nodules that measure up to 1.3 cm. Evaluation of the abdomen and pelvis is suboptimal on this unenhanced examination. Unenhanced images of the liver, spleen, adrenal glands are unremarkable with exception of calcified granulomas within the spleen. There are calcifications within the uncinate process and pancreatic head. There is no pancreatic ductal dilatation. There is no biliary ductal dilatation. No hydronephrosis is present. A water attenuation 2.8 cm lesion within the lower pole of the left kidney is suboptimally assessed on this unenhanced exam but favors a cyst. There is mild wall thickening of the anterior wall of the bladder. There is no evidence for a bowel obstruction. Moderate amount stool is noted. The appendix is normal. There is no stool within the rectum. No pneumatosis, free air or portal vein gas is present. Fat- containing upper abdominal ventral hernia is noted. Several vascular stents are noted. These are suboptimally assessed on this unenhanced examination. No acute pelvic fracture is noted. There is no acute hip fracture. Note is made of an acute mild compression fracture of the superior endplate of T12 with minimal retropulsion of 3 mm. No acute lumbar spine fracture is noted. Grade one anterolisthesis of L5 on S1 is noted. IMPRESSION: 1. Acute mild T12 compression fracture with 25% loss of vertebral body height and minimal retropulsion. 2. Moderate amount stool within the colon. No evidence for a bowel obstruction. 3. Mild anterior bladder wall thickening which can be correlated with urinalysis and urine cytology. If abnormal, Urology consultation is recommended. 4. Several noncalcified pleural nodules within the right lower right hemithorax. Follow-up chest CT in 6 months to ensure stability is recommended. 06/20/20 09:00 MR thoracic spine wo con Routine There is an L1 focal fatty rest/hemangioma. There is T12 superior endplate marrow edema indicative of an acute/subacute fracture. There is 25% loss in height. There is 3 mm of retropulsion. No spinal cord lesions are visualized. There are no findings to indicate epidural hematoma. IMPRESSION: 1. Acute/subacute T12 compression fracture with 25% loss in height and 3 mm of retropulsion 2. No evidence of epidural hematoma 3. No spinal cord lesions identified Hospital Course (1) Fall: (2) Back pain: (3) Thoracic spine fracture: Status post mechanical fall on 15 June while trying to put drops in the eyes No loss of consciousness and no significant injury except ongoing back pain since then CT lumbar spine did show 25% acute compression fracture involving T12 MRI noted above Was evaluated by Ortho. Brace not indicated. Patient to follow-up with Ortho Pain controlled Was evaluated by physical therapist. Prescription written for home walker. internet project manager arranged home health and PT (4) Constipation: Continue bowel regimen (5) Diabetic peripheral neuropathy associated with type 2 diabetes mellitus: History of uncontrolled diabetes Continue home insulin regimen A1c 8.1 (6) HTN (hypertension): BP has been 140s-150s/70s Continue metoprolol Follow-up with PCP for continued management (7) Chronic kidney disease: Cr is 1.5 At baseline Continue lasix on discharge (8) Seizure disorder: No history of recent seizure We will continue current medications Has history of intracranial hemorrhage status post surgery and oral cavity cancer status post surgery Total Time Total Time Spent Total Time Spent (In Minutes): 35 Total Time Includes: Examination of the Patient, Discharge Planning and Medication Reconciliation Discharge Plan Discharge Items Patient Disposition: Home - Home Health Services Reason For Visit: FALL, T12 FRACTURE Discharge Diagnosis: Fall T12 compression fracture Activity: Per Instructions section Activity Comment: Use walker Non-emergency contact: Primary Care Provider and Surgeon Call non-emergency contact if: you have any medication questions and your pain is not controlled Follow-up/Referrals: Manjit Bartlett DO [Surgeon] - Aly Muñiz MD [Primary Care Provider] - Diet: Heart Healthy Addtl Attending Provider Instructions: Mr Harvey. You came to the hospital after a fall You were evaluated and found to have a compression fracture at T12 vertebral level. You were evaluated by Orthopedic surgeon. No intervention necessary at this time. It is very important that you avoid any lifting above 5 pounds and only do very light activity Use tylenol as needed for pain as we discussed Use walker to ambulate. Please follow up with the Orthopedic surgeon in the office It was a pleasure taking care of you. Pending Studies at Discharge: No Stand-Alone Forms: My [email or web address], Smoking Cessation Medications and DC Order Prescriptions: New acetaminophen 325 mg Tablet 650 mg PO Q6H PRN (Reason: pain) Qty: 60 RF: 0 Continued hydrocortisone 2.5 % cream 1 appln topical HS PRN (Reason: Rash) RF: 0 PreserVision Lutein 226 mg-200 unit -5 mg-0.8 mg capsule 1 cap PO BID RF: 0 (DME) blood-glucose meter [OneTouch Verio Meter] misc See Dose Instructions .ROUTE .MEDSUPPLY Qty: 1 RF: 0 Novolog U-100 Insulin aspart 100 unit/mL solution 30 units SQ .COMPLEX RF: 0 Lantus U-100 Insulin 100 unit/mL solution 15 unit SQ HS RF: 0 (DME) OneTouch Verio test strips Strip See Dose Instructions .ROUTE .MEDSUPPLY Qty: 500 RF: 3 (DME) insulin syringe-needle U-100 [BD Insulin Syringe Ultra-Fine] 0.3 mL 31 gauge x 5/16" syringe See Dose Instructions .ROUTE .MEDSUPPLY Qty: 400 RF: 3 econazole 1 % Cream 1 applic TOPICAL QID RF: 0 triamcinolone acetonide 0.1 % Ointment 1 applic TOPICAL BID RF: 0 furosemide 20 mg tablet 20 mg PO MOWEFR RF: 0 [id number]-algal oil [Metanx (algal oil)] 3 mg-35 mg-2 mg -90.314 mg Capsule 1 cap PO DAILY RF: 0 levetiracetam 500 mg tablet 500 mg PO BID RF: 0 lovastatin 10 mg tablet 10 mg PO DAILY@1200 RF: 0 divalproex 250 mg tablet extended release 24 hr 250 mg PO TID RF: 0 metoprolol tartrate 25 mg tablet 25 mg PO BID RF: 0 aspirin 81 mg Tablet,Delayed Release (Dr/Ec) 81 mg PO QAM RF: 0 Discharge Orders: Discharge Order (Routine); Ordered 06/20/20 Ordered By: Nancy Asif Admission Data Admit Date/Time: 06/19/20 13:46 Attending Provider: Nancy Asif I. Admit Provider: Mary Kearns Primary Care Provider: Aly Muñiz Other Providers: Mary Kearns ; Manjit Bartlett ; [place] Other Interventions: Discharge Summary Assessment (RN) Last Done: 06/20/20 18:08
[2020-06-21 06:10] LABS: Estimated Average Glucose 186 mg/dl; Hemoglobin A1C 8.1 % (4.5-5.6)
== END 2020-06-20 18:10 | disposition home health service (06) ==
LOC: ED 09:34 → 2S 09:34 → SUATTDRO 13:46 → 2S 14:03